=== PATIENT | female | born 1930 | race Caucasian/White ===

== ENCOUNTER 2016-09-27 13:27 | Inpatient (IN) | payer BC, OTHER ==
[~2016-09-27] VITALS: Ht 152.4 cm; Wt 49.4 kg
[~2016-09-27 13:27] MED LIST: CALC-388 PO; CRFUDL PO; ESOM1CAP34 PO; GABA-113 PO; LDDP5 TD; LEVO50TA PO; NCY50 PO; QUIN40TA18 PO; SPIR25TA PO; TAPE50TA5 PO
[2016-09-27] MEDS ORDERED: SODIUM CHLORIDE 0.9% 500ML 500 ML IV STA ×2 (14:13→16:21)
[2016-09-27] MEDS ORDERED: SODIUM CHLORIDE 0.9% 1000ML 1,000 ML IV STA (14:13)
[2016-09-27 14:42] LABS: BASO % 0.3 %; BASO ABS # 0.04 K/uL (0-0.2); COMPLETE YES; EOS % 0.9 %; HEMATOCRIT 34.3 % (37-47); IG% 0.6 %; LYMPH % 10.6 %; LYMPH ABS # 1.37 K/uL (1.2-3.4); MEAN CELL VOLUME 94.5 fL (80-100); MEAN CORPUSCULAR HEMOGLOBIN 31.4 pg (25-34); MEAN CORPUSCULAR HGB CONC 33.2 g/dl (32-36); MEAN PLATELET VOLUME 8.9 fL (7.4-10.4); NEUT % 77.6 %; PLATELET COUNT 440 K/uL (130-400); RED BLOOD COUNT 3.63 M/uL (4.2-5.4); WHITE BLOOD COUNT 12.97 K/uL (4.8-10.8)
[2016-09-27 14:52] LABS: PARTIAL THROMBOPLASTIN RATIO 1.2; PROTHROMBIN TIME (PATIENT) 10.5 SECONDS (9.0-12.0)
--- NOTE | 2016-09-27 14:56 | DIAGNOSTIC IMAGING REPORT ---
SINGLE VIEW CHEST CLINICAL HISTORY: Fall. Generalized weakness. FINDINGS: An AP, portable, upright chest radiograph is compared to study dated 01/31/2016. The examination is degraded by portable technique and patient rotation. The heart appears mildly enlarged and there is atherosclerotic calcification of the thoracic aorta. There is chronic elevation of the right hemidiaphragm and bibasilar atelectasis. A hiatal hernia is noted. No airspace consolidation is seen typical for pneumonia and there is no large pleural effusion. No pneumothorax is seen. The skeletal structures are osteopenic. The bony thorax is grossly intact. Degenerative change and scoliosis are noted in the thoracic spine. IMPRESSION: 1. Cardiac enlargement with no acute cardiopulmonary abnormality. 2. Hiatal hernia. Electronically signed by: Benjamín Charles M.D. 09/27/2016 2:55 PM Dictated Date/Time: 09/27/2016 2:53 PM
[2016-09-27] MEDS ORDERED: ESOM1CAP34 PO (14:57)
[2016-09-27] MEDS ORDERED: LEVO75TA5 PO (15:00)
[2016-09-27 15:01] LABS: ALT/SGPT 35 U/L (12-78); AST/SGOT 58 U/L (15-37); BLOOD UREA NITROGEN 59 mg/dl (7-18); CALCIUM 9.5 mg/dl (8.5-10.1); CARBON DIOXIDE 27 mmol/L (21-32); CHLORIDE 99 mmol/L (98-107); GLUCOSE 109 mg/dl (70-99); MAGNESIUM 2.6 mg/dl (1.8-2.4); POTASSIUM 4.9 mmol/L (3.5-5.1); SODIUM 132 mmol/L (136-145)
[2016-09-27] MEDS ORDERED: ACET-1256 PO (15:03)
--- NOTE | 2016-09-27 15:13 | DIAGNOSTIC IMAGING REPORT ---
CT SCAN OF THE BRAIN WITHOUT IV CONTRAST CLINICAL HISTORY: Generalized weakness. Falls. COMPARISON STUDY: No priors. TECHNIQUE: Unenhanced axial CT scan of the brain is performed from the vertex to the skull base. FINDINGS: Brain parenchyma: There are age-related involutional changes noting moderate confluent subcortical and periventricular microangiopathic change. 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 There is no hemorrhage, mass effect, or evidence of acute territorial ischemia by CT criteria. Winkler-white matter is preserved. No extra-axial fluid collection is seen. Ventricles, sulci, cisterns: Prominent secondary to involutional change. Intracranial vasculature: There is atherosclerotic calcification of the cavernous carotid and vertebral arteries. Calvarium: The skeletal structures are osteopenic. No depressed calvarial fracture is seen. Sinuses and mastoids: There is moderate mucosal thickening within the anterior ethmoid sinuses. Mild mucosal thickening is seen in the frontal sinuses. Air-fluid levels noted in the left maxillary antrum. The mastoid air cells are well pneumatized. Orbits: The bony orbits are grossly intact. IMPRESSION: 1. Senescent changes as above with no hemorrhage, mass effect, or evidence of acute territorial ischemia by CT criteria. 2. Paranasal sinus disease as above. Electronically signed by: Benjamín Charles M.D. 09/27/2016 3:11 PM Dictated Date/Time: 09/27/2016 3:09 PM
[2016-09-27 15:15] LABS: ALKALINE PHOSPHATASE 67 U/L (45-117); CKMB/CK RATIO 1.5 (0-3.0)
--- NOTE | 2016-09-27 15:23 | DIAGNOSTIC IMAGING REPORT ---
CERVICAL SPINE CT CT DOSE: 1041.54 mGy.cm HISTORY: Neck pain. fall TECHNIQUE: Multiaxial CT images of the cervical spine were performed and reformatted in the sagittal and coronal plane without the use of contrast. COMPARISON: None. FINDINGS: There are severe disc space narrowing, partial fusion, and endplate osteophytes at the C4-C7 levels. There is 2 mm of anterolisthesis of C3 and C4 and C7 on T1. This favors long-standing degenerative change or a Fusion of the facets at C2-C3. Mild to moderate central canal narrowing seen from C4 through C7. Mild disc space narrowing at C3-C4 and C7-T1. No prevertebral soft tissue swelling. No pneumothorax. Tiny lucency within the left C4 transverse process on image 242 demonstrates carotid edges and is therefore likely old. No acute fractures. IMPRESSION: No acute fractures within the cervical spine. Advanced degenerative changes as described above. Electronically signed by: Cedrick Prater M.D. 09/27/2016 3:21 PM Dictated Date/Time: 09/27/2016 3:13 PM
[2016-09-27] MEDS ORDERED: LEVAQUIN 750MG / 150ML D5W IV STA (16:21)
[2016-09-27 17:15] LABS: URINE APPEARANCE TURBID (CLEAR); URINE BILIRUBIN NEG (NEG); URINE COLOR YELLOW; URINE EPITHELIAL CELL AUTO >30 /lpf (0-5); URINE NITRITE POS (NEG); URINE SPECIFIC GRAVITY 1.014 (1.000-1.030); UROBILINOGEN NEG (NEG)
[2016-09-27 17:22] LABS: MANUAL MICROSCOPIC REQUIRED? NO; REVIEW REQ? YES
[2016-09-27] MEDS ORDERED: TAPENTADOL HCL 50 MG TAB PO PRN (17:30)
[2016-09-27] MEDS ORDERED: ACETAMINOPHEN 500 MG TAB PO PRN (17:30)
[2016-09-27] MEDS ORDERED: MAGNESIUM HYDROXIDE SUSP 30 ML UDC PO PRN (17:30)
[2016-09-27] MEDS ORDERED: ONDANSETRON INJ 2 MG/ML 2 ML VIAL IV PRN (17:30)
[2016-09-27] MEDS ORDERED: ACETAMINOPHEN 325 MG TAB PO PRN (17:30)
--- NOTE | 2016-09-27 17:35 | History and Physical ---
History & Physical Date & Time of Service: Sep 27, 2016 at 17:34 Chief Complaint: 4 Falls In Past 3 Days - Refered Primary Care Physician: Inocencia Monterroso DO History of Present Illness Source: patient 86 y/o F who was transferred here from [facility] for recent falls. Pt states she fell this AM "and 3-5 other times". She cannot outline these falls to me. She cannot tell me if she has been eating or drinking lately. Pt denies fever, SOB, chest pain, abd pain, n/v/c/d, LE pain or swelling, urinary issues. Pt states she is tired. ROS as noted above, otherwise neg. ED physician reports that there was a niece with pt prior who states that there was intermittent confusion over the last few days with some R LE weakness. She thought the pt was pale yesterday and had some LE swelling despite decreased fluid intake. She reports that a urine was done at and that it was neg. There are no reports in our sx of a UA. Past Medical/Surgical History Medical Problems: (1) Anemia Status: Chronic (2) GI bleed Status: Resolved (3) Hypertension Status: Chronic (4) Hypothyroidism Status: Chronic (5) Osteoporosis Status: Chronic (6) Spinal stenosis Status: Chronic Family History Family history was reviewed; no changes noted. Social History Smoking Status: Never Smoker Alcohol Use: none Drug Use: none Marital Status: Occupational Status: retired Multi-Drug Resistant Organisms History of MDRO: No Allergies Coded Allergies: No Known Allergies (Unverified , 05/20/16) Home Medications Scheduled Calcium Carbonate-Vitamin D (Calcium + D3 600-200 mg-Unit), 1 TAB PO BID Esomeprazole Magnesium (Esomeprazole Magnesium), 40 MG PO DAILY Gabapentin (Neurontin), 300 MG PO TID Levothyroxine Sodium (Levothyroxine Sodium), 1 TAB PO DAILY Quinapril Hcl (Accupril), 40 MG PO DAILY Spironolactone (Aldactone), 25 MG PO DAILY Tapentadol Hcl (Nucynta), 50 MG PO BID Scheduled PRN Acetaminophen (Tylenol), 1,000 MG PO Q8H PRN for Fever Tapentadol HCl (Nucynta), 50 MG PO Q6 PRN for Pain Physical Exam Vital Signs Date Time Temp Pulse Resp B/P Pulse Ox O2 Delivery O2 Flow Rate FiO2 09/27/16 16:45 78 141/68 98 Room Air 09/27/16 16:31 83 16 115/102 90 Room Air 09/27/16 15:16 82 14 111/64 96 Nasal Cannula 2.0 09/27/16 14:46 95 Nasal Cannula 2.0 09/27/16 14:44 60 14 140/78 94 Room Air 09/27/16 14:38 86 09/27/16 14:32 84 Room Air 09/27/16 13:36 37.1 93 20 72/44 93 Room Air General Appearance: no apparent distress, + thin Head: normocephalic, atraumatic Respiratory/Chest: lungs clear, normal breath sounds Cardiovascular: regular rate, rhythm, no edema Abdomen/GI: non tender, soft Extremities/Musculoskelatal: no calf tenderness, no pedal edema 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 as tested, alert, oriented x 3 Skin: normal color, warm/dry Diagnostics Laboratory Results Results Past 24 Hours Test 09/27/16 14:26 09/27/16 14:35 09/27/16 16:45 Range/Units White Blood Count 12.97 4.8-10.8 K/uL Red Blood Count 3.63 4.2-5.4 M/uL Hemoglobin 11.4 12.0-16.0 g/dL Hematocrit 34.3 37-47 % Mean Corpuscular Volume 94.5 80-100 fL Mean Corpuscular Hemoglobin 31.4 25-34 pg Mean Corpuscular Hemoglobin Concent 33.2 32-36 g/dl Platelet Count 440 130-400 K/uL Mean Platelet Volume 8.9 7.4-10.4 fL Neutrophils (%) (Auto) 77.6 % Lymphocytes (%) (Auto) 10.6 % Monocytes (%) (Auto) 10.0 % Eosinophils (%) (Auto) 0.9 % Basophils (%) (Auto) 0.3 % Neutrophils # (Auto) 10.06 1.4-6.5 K/uL Lymphocytes # (Auto) 1.37 1.2-3.4 K/uL Monocytes # (Auto) 1.30 0.11-0.59 K/uL Eosinophils # (Auto) 0.12 0-0.5 K/uL Basophils # (Auto) 0.04 0-0.2 K/uL RDW Standard Deviation 44.9 36.4-46.3 fL RDW Coefficient of Variation 13.0 11.5-14.5 % Immature Granulocyte % (Auto) 0.6 % Immature Granulocyte # (Auto) 0.08 0.00-0.02 K/uL Prothrombin Time 10.5 9.0-12.0 SECONDS Prothromb Time International Ratio 1.0 0.9-1.1 Activated Partial Thromboplast Time 30.0 21.0-31.0 SECONDS Partial Thromboplastin Ratio 1.2 Sodium Level 132 136-145 mmol/L Potassium Level 4.9 3.5-5.1 mmol/L Chloride Level 99 98-107 mmol/L Carbon Dioxide Level 27 21-32 mmol/L Anion Gap 6.0 3-11 mmol/L Blood Urea Nitrogen 59 7-18 mg/dl Creatinine 3.70 0.60-1.20 mg/dl Est Creatinine Clear Calc Drug Dose 8.4 ml/min Estimated GFR () 12.1 Estimated GFR (Non- 10.4 BUN/Creatinine Ratio 16.0 10-20 Random Glucose 109 70-99 mg/dl Calcium Level 9.5 8.5-10.1 mg/dl Magnesium Level 2.6 1.8-2.4 mg/dl Total Bilirubin 0.5 0.2-1 mg/dl Direct Bilirubin 0.2 0-0.2 mg/dl Aspartate Amino Transf (AST/SGOT) 58 15-37 U/L Alanine Aminotransferase (ALT/SGPT) 35 12-78 U/L Alkaline Phosphatase 67 45-117 U/L Total Creatine Kinase 1040 26-192 U/L Creatine Kinase MB 15.4 0.5-3.6 ng/ml Creatine Kinase MB Ratio 1.5 0-3.0 Troponin I < 0.015 0-0.045 ng/ml Total Protein 8.3 6.4-8.2 gm/dl Albumin 3.4 3.4-5.0 gm/dl Lipase 106 73-393 U/L Thyroid Stimulating Hormone (TSH) 2.910 0.300-4.500 uIu/ml Bedside Lactic Acid Venous 1.10 0.90-1.70 mmol/L Urine Color YELLOW Urine Appearance TURBID CLEAR Urine pH 5.0 4.5-7.5 Urine Specific [place] 1.014 1.000-1.030 Urine Protein 1+ NEG Urine Glucose (UA) NEG NEG Urine Ketones NEG NEG Urine Occult Blood 3+ NEG Urine Nitrite POS NEG Urine Bilirubin NEG NEG Urine Urobilinogen NEG NEG Urine Leukocyte Esterase LARGE NEG Microbiology Results 09/27/16 Blood Culture, Received Pending 09/27/16 Blood Culture, Received Pending 09/27/16 Urine Culture, Received Pending Diagnostic Radiology CXR neg for acute issues, noted for hiatal hernia CT head with paranasal sinusitis CT c-spine neg for acute issues Impression Assessment and Plan 86 y/o F who was admitted on 09/27 for rhabdo and AMS AMS: metabolic encephalopathy, 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 She does have a living will that states that she is DNR/DNI in the setting of permanent brain damage or need for mechanical support May need to discuss code status further with niece Reg diet per [facility] records Heparin for DVT proph CM: Pt lives at [facility] PT/OT Level of Care Telemetry Advanced Directives Existing Advance Directive: Yes Existing Living Will: Yes Existing Power of Surgical Clinical Reviewer: Yes Resuscitation Status FULL RESUSCITATION VTE Prophylaxis VTE Risk Assessment Done? Y/N: Yes Risk Level: Low
--- NOTE | 2016-09-27 17:45 | EMERGENCY ROOM VISIT NOTE ---
History Report prepared by Mark: Rocky Hyman Under the Supervision of: Dr. Ashish Oquendo M.D. First contact with patient: 14:12 Chief Complaint: HYPOTENSION Stated Complaint: 4 FALLS IN PAST 3 DAYS - REFERED History of Present Illness The patient is an 86 year old female who presents to the Emergency Room from [facility] with complaints of worsening fatigue beginning three days prior to arrival. As per niece, the patient has fallen 4 times in the past three days. She notes that when the nurses find the patient on the floor that she does not know what happened. The niece states the patient fell on the bathroom floor this morning. She also states the patient has experienced intermittent confusion over the past few days, as well. The niece notes the patient has sclerosis in the lower back with two pinched nerves that she takes medication for. The patient states her right leg has appeared weaker over the past few days. The niece notes the patient has not been walking as much as usual. She states she noticed the patient appeared pale yesterday and saw swelling in the patient's feet. The niece notes the patient has been hunched over with her face in her lap, where the patient will fall asleep in the position. She states it has been difficult for the patient to sit up straight, and she has decreased fluid intake. The niece denies the patient having a history of stroke. Pt denies LOC, headache, fevers, chills, diaphoresis, visual changes, neck pain, chest pain, breathing difficulties, nausea, vomiting, abdominal pain, back pain , melena, hematochezia, urinary symptoms, numbness, lymphadenopathy, rash, or other complaints. Source of History: patient, family (niece) Onset: three days [employer] Position: other (global) Quality: other (fatigue) Timing: worsening Associated Symptoms: + fatigue, + weakness (right leg) Note: Associated symptoms: frequent falls, intermittent confusion, decreased fluid intake Review of Systems See HPI for pertinent positives and negatives. A total of ten systems were reviewed and were otherwise negative. Past Medical & Surgical Medical Problems: (1) Anemia (2) GI bleed (3) Hypertension (4) Hypothyroidism (5) Lumbar degenerative disc disease (6) Osteoporosis (7) Rhabdomyolysis (8) Spinal stenosis Family History Heart disease Hypertension Social History Smoking Status: Never Smoker Drug Use: none Marital Status: Housing Status: other ([facility]) Occupation Status: retired Current/Historical Medications Scheduled Calcium Carbonate-Vitamin D (Calcium + D3 600-200 mg-Unit), 1 TAB PO BID Esomeprazole Magnesium (Esomeprazole Magnesium), 40 MG PO DAILY Gabapentin (Neurontin), 300 MG PO TID Levothyroxine Sodium (Levothyroxine Sodium), 1 TAB PO DAILY Quinapril Hcl (Accupril), 40 MG PO DAILY Spironolactone (Aldactone), 25 MG PO DAILY Tapentadol Hcl (Nucynta), 50 MG PO BID Scheduled PRN Acetaminophen (Tylenol), 1,000 MG PO Q8H PRN for Fever Tapentadol HCl (Nucynta), 50 MG PO Q6 PRN for Pain Allergies Coded Allergies: No Known Allergies (Unverified , 05/20/16) Physical Exam Vital Signs Date Time Temp Pulse Resp B/P Pulse Ox O2 Delivery O2 Flow Rate FiO2 09/27/16 16:45 78 141/68 98 Room Air 09/27/16 16:31 83 16 115/102 90 Room Air 09/27/16 15:16 82 14 111/64 96 Nasal Cannula 2.0 09/27/16 14:46 95 Nasal Cannula 2.0 09/27/16 14:44 60 14 140/78 94 Room Air 09/27/16 14:38 86 09/27/16 14:32 84 Room Air 09/27/16 13:36 37.1 93 20 72/44 93 Room Air Physical Exam GENERAL: Awake, alert, well-appearing, in no distress HENT: Normocephalic, atraumatic. Oropharynx unremarkable. EYES: Pale conjunctiva. Sclera non-icteric. PERRL. EOMI. NECK: Supple. No nuchal rigidity. FROM. No JVD. RESPIRATORY: Clear to auscultation. CARDIAC: Regular rate, normal rhythm. Extremities warm and well perfused. Pulses equal. ABDOMEN: Soft, non-distended. No tenderness to palpation. No rebound or guarding. No masses. RECTAL: Deferred. MUSCULOSKELETAL: Chest examination reveals no tenderness. The back is symmetrical on inspection without obvious abnormality. There is no CVA tenderness to palpation. No joint edema. LOWER EXTREMITIES: Trace lower extremity edema. Calves are equal size bilaterally and non-tender. No discoloration. NEURO: Mildly consumed sensorium. No sensory or motor deficits noted. SKIN: No rash or jaundice noted. Medical Decision & Procedures ER Provider Diagnostic Interpretation: X ray results as stated below per my interpretation and radiologist interpretation. Other radiology results as stated below per my review and radiologist interpretation SINGLE VIEW CHEST CLINICAL HISTORY: Fall. Generalized weakness. FINDINGS: An AP, portable, upright chest radiograph is compared to study dated 01/31/2016. The examination is degraded by portable technique and patient rotation. The heart appears mildly enlarged and there is atherosclerotic calcification of the thoracic aorta. There is chronic elevation of the right hemidiaphragm and bibasilar atelectasis. A hiatal hernia is noted. No airspace consolidation is seen typical for pneumonia and there is no large pleural effusion. No pneumothorax is seen. The skeletal structures are osteopenic. The bony thorax is grossly intact. Degenerative change and scoliosis are noted in the thoracic spine. IMPRESSION: 1. Cardiac enlargement with no acute cardiopulmonary abnormality. 2. Hiatal hernia. Electronically signed by: Benjamín Charles M.D. 09/27/2016 2:[address] SCAN OF THE BRAIN WITHOUT IV CONTRAST CLINICAL HISTORY: Generalized weakness. Falls. COMPARISON STUDY: No priors. TECHNIQUE: Unenhanced axial CT scan of the brain is performed from the vertex to the skull base. FINDINGS: Brain parenchyma: There are age-related involutional changes noting moderate confluent subcortical and periventricular microangiopathic change. 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 There is no hemorrhage, mass effect, or evidence of acute territorial ischemia by CT criteria. Winkler-white matter is preserved. No extra-axial fluid collection is seen. Ventricles, sulci, cisterns: Prominent secondary to involutional change. Intracranial vasculature: There is atherosclerotic calcification of the cavernous carotid and vertebral arteries. Calvarium: The skeletal structures are osteopenic. No depressed calvarial fracture is seen. Sinuses and mastoids: There is moderate mucosal thickening within the anterior ethmoid sinuses. Mild mucosal thickening is seen in the frontal sinuses. Air-fluid levels noted in the left maxillary antrum. The mastoid air cells are well pneumatized. Orbits: The bony orbits are grossly intact. IMPRESSION: 1. Senescent changes as above with no hemorrhage, mass effect, or evidence of acute territorial ischemia by CT criteria. 2. Paranasal sinus disease as above. Electronically signed by: Benjamín Charles M.D. 09/27/2016 3:[address] DOSE: 1041.54 mGy.cm HISTORY: Neck pain. fall TECHNIQUE: Multiaxial CT images of the cervical spine were performed and reformatted in the sagittal and coronal plane without the use of contrast. COMPARISON: None. FINDINGS: There are severe disc space narrowing, partial fusion, and endplate osteophytes at the C4-C7 levels. There is 2 mm of anterolisthesis of C3 and C4 and C7 on T1. This favors long-standing degenerative change or a Fusion of the facets at C2-C3. Mild to moderate central canal narrowing seen from C4 through C7. Mild disc space narrowing at C3-C4 and C7-T1. No prevertebral soft tissue swelling. No pneumothorax. Tiny lucency within the left C4 transverse process on image 242 demonstrates carotid edges and is therefore likely old. No acute fractures. IMPRESSION: No acute fractures within the cervical spine. Advanced degenerative changes as described above. Electronically signed by: Cedrick Prater M.D. 09/27/2016 3:21 PM Laboratory Results 09/27/16 14:26 Red Blood Count 3.63, Mean Corpuscular Volume 94.5, Mean Corpuscular Hemoglobin 31.4, Mean Corpuscular Hemoglobin Concent 33.2, Mean Platelet Volume 8.9, Neutrophils (%) (Auto) 77.6, Lymphocytes (%) (Auto) 10.6, Monocytes (%) (Auto) 10.0, Eosinophils (%) (Auto) 0.9, Basophils (%) (Auto) 0.3, Neutrophils # (Auto ) 10.06, Lymphocytes # (Auto) 1.37, Monocytes # (Auto) 1.30, Eosinophils # (Auto ) 0.12, Basophils # (Auto) 0.04 09/27/16 14:26 Test 09/27/16 14:26 09/27/16 14:35 09/27/16 16:45 White Blood Count 12.97 K/uL (4.8-10.8) Red Blood Count 3.63 M/uL (4.2-5.4) Hemoglobin 11.4 g/dL (12.0-16.0) Hematocrit 34.3 % (37-47) Mean Corpuscular Volume 94.5 fL (80-100) Mean Corpuscular Hemoglobin 31.4 pg (25-34) Mean Corpuscular Hemoglobin Concent 33.2 g/dl (32-36) Platelet Count 440 K/uL (130-400) Mean Platelet Volume 8.9 fL (7.4-10.4) Neutrophils (%) (Auto) 77.6 % Lymphocytes (%) (Auto) 10.6 % Monocytes (%) (Auto) 10.0 % Eosinophils (%) (Auto) 0.9 % Basophils (%) (Auto) 0.3 % Neutrophils # (Auto) 10.06 K/uL (1.4-6.5) Lymphocytes # (Auto) 1.37 K/uL (1.2-3.4) Monocytes # (Auto) 1.30 K/uL (0.11-0.59) Eosinophils # (Auto) 0.12 K/uL (0-0.5) Basophils # (Auto) 0.04 K/uL (0-0.2) RDW Standard Deviation 44.9 fL (36.4-46.3) RDW Coefficient of Variation 13.0 % (11.5-14.5) Immature Granulocyte % (Auto) 0.6 % Immature Granulocyte # (Auto) 0.08 K/uL (0.00-0.02) Prothrombin Time 10.5 SECONDS (9.0-12.0) Prothromb Time International Ratio 1.0 (0.9-1.1) Activated Partial Thromboplast Time 30.0 SECONDS (21.0-31.0) Partial Thromboplastin Ratio 1.2 Anion Gap 6.0 mmol/L (3-11) Est Creatinine Clear Calc Drug Dose 8.4 ml/min Estimated GFR () 12.1 Estimated GFR (Non- 10.4 BUN/Creatinine Ratio 16.0 (10-20) Calcium Level 9.5 mg/dl (8.5-10.1) Magnesium Level 2.6 mg/dl (1.8-2.4) Total Bilirubin 0.5 mg/dl (0.2-1) Direct Bilirubin 0.2 mg/dl (0-0.2) Aspartate Amino Transf (AST/SGOT) 58 U/L (15-37) Alanine Aminotransferase (ALT/SGPT) 35 U/L (12-78) Alkaline Phosphatase 67 U/L (45-117) Total Creatine Kinase 1040 U/L (26-192) Creatine Kinase MB 15.4 ng/ml (0.5-3.6) Creatine Kinase MB Ratio 1.5 (0-3.0) Troponin I < 0.015 ng/ml (0-0.045) Total Protein 8.3 gm/dl (6.4-8.2) Albumin 3.4 gm/dl (3.4-5.0) Lipase 106 U/L (73-393) Thyroid Stimulating Hormone (TSH) 2.910 uIu/ml (0.300-4.500) Bedside Lactic Acid Venous 1.10 mmol/L (0.90-1.70) Urine Color YELLOW Urine Appearance TURBID (CLEAR) Urine pH 5.0 (4.5-7.5) Urine Specific [place] 1.014 (1.000-1.030) Urine Protein 1+ (NEG) Urine Glucose (UA) NEG (NEG) Urine Ketones NEG (NEG) Urine Occult Blood 3+ (NEG) Urine Nitrite POS (NEG) Urine Bilirubin NEG (NEG) Urine Urobilinogen NEG (NEG) Urine Leukocyte Esterase LARGE (NEG) Urine WBC (Auto) >30 /hpf (0-5) Urine RBC (Auto) 5-10 /hpf (0-4) Urine Hyaline Casts (Auto) 5-10 /lpf (0-5) Urine Epithelial Cells (Auto) >30 /lpf (0-5) Urine Bacteria (Auto) 4+ (NEG) Urine Pathogenic Casts /lpf (0) Laboratory results reviewed by me Medications Administered Medications (Trade) Dose Ordered Sig/Declan Route Start Time Stop Time Status Last Admin Dose Admin Sodium Chloride 1,000 ml @ 125 mls/hr Q8H STAT IV 09/27/16 14:13 09/27/16 22:12 09/27/16 14:13 125 MLS/HR Sodium Chloride (Nss 500ml) 500 ml @ 999 mls/hr Q31M STAT IV 09/27/16 14:13 09/27/16 14:43 DC 09/27/16 14:13 999 MLS/HR Levofloxacin 750 mg 750 mg NOW STAT IV 09/27/16 16:21 09/27/16 16:24 DC 09/27/16 17:03 750 MG Sodium Chloride (Nss 500ml) 500 ml @ 999 mls/hr Q31M STAT IV 09/27/16 16:21 09/27/16 16:51 DC 09/27/16 16:21 999 MLS/HR ECG Indication: other (fall) Rate (beats per minute): 92 Rhythm: sinus rhythm Findings: 1st degree AV block, no acute ischemic change, no ectopy ED Course 1412: The patient was evaluated in room C3. A complete history and physical exam was performed. 1413: Ordered Sodium Chloride 500 ml @ 999 mls/hr IV, Sodium Chloride 1,000 ml @ 125 mls/hr IV. 1621: Ordered Sodium Chloride 500 ml @ 999 mls/hr IV, Levofloxacin 750 mg IV. 1638: Reevaluated and updated the patient at this time. She is in agreement with the treatment plan. 1646: I spoke to MONICA Jimenez (Internal Medicine) about the patient's case , and she will follow the patient for further evaluation. Medical Decision Triage Nursing notes reviewed. The patient's presentation and history were concerning for confusion and falls. Etiologies such as metabolic, infection, hypo/hyperglycemia, electrolyte abnormalities, cardiac sources, intracerebral event, toxicologic, neurologic, trauma, as well as others were entertained. The patient was evaluated. An IV was established. Blood cultures were obtained. The patient was given IV saline hydration. Her CBC showed a mild leukocytosis. She had a mild anemia as well. Chem panel was definitely concerning for acute renal failure with a creatinine of 3.7. Last measurements in the system are normal. The patient has elevated total CK of 1040 concerning for mild rhabdomyolysis. The patient has a normal lactate. Chest x-ray negative. CT imaging of the head and neck were unremarkable except for acute sinusitis. The patient does not have a headache the patient was given IV Levaquin. Urinalysis was pending. Nursing was notified to get the cath urine for the antibiotics. Cath urine was obtained and the patient did see the IV antibiotics. Consultation was made with internal medicine. I discussed the case with Dr. Vargas. She asked that I hold on imaging until she sees the patient regarding the renal failure.The patient's urinalysis returned after admission concerning for UTI. The chart was completed utilizing [employer] voice recognition software. Grammatical errors, random word insertions, pronoun errors, and incomplete sentences are an occasional consequence of this system due to software limitations, ambient noise, and hardware issues. Any formal questions or concerns about the content, text, or information contained within the body of this dictation should be directly addressed to the physician for clarification. Consults Time Called: 1628 Consulting Physician: MONICA Jimenez (Internal Medicine) Returned Call: 1646 I spoke to MONICA Jimenez (Internal Medicine) about the patient's case, and she will follow the patient for further evaluation. Impression Primary Impression: Acute renal failure Additional Impressions: Rhabdomyolysis Degenerative disc disease Sinusitis UTI (urinary tract infection) Scribe Attestation The scribe's documentation has been prepared under my direction and personally reviewed by me in its entirety. I confirm that the note above accurately reflects all work, treatment, procedures, and medical decision making performed by me. Departure Information Dispostion Being Evaluated By Hospitalist (MONICA Jimenez (Internal Medicine)) Referrals Inocencia Monterroso DO (PCP) Problem Qualifiers Primary Impression: Acute renal failure Acute renal failure type: unspecified Qualified Codes: N17.9 - Acute kidney failure, unspecified Additional Impressions: Rhabdomyolysis Rhabdomyolysis type: traumatic Encounter type: initial encounter Qualified Codes: T79.6XXA - Traumatic ischemia of muscle, initial encounter Degenerative disc disease Spinal region: unspecified cervical region Qualified Codes: M50.30 - Other cervical disc degeneration, unspecified cervical region Sinusitis Sinusitis location: maxillary Chronicity: acute Recurrence: non-recurrent Qualified Codes: J01.00 - Acute maxillary sinusitis, unspecified UTI (urinary tract infection) Urinary tract infection type: acute cystitis Hematuria presence: without hematuria Qualified Codes: N30.00 - Acute cystitis without hematuria
[2016-09-27] MEDS: SODIUM CHLORIDE 0.9% 1000ML 1,000 ML IV SCH (19:42)
[2016-09-27] MEDS ORDERED: LEVOFLOXACIN CONSULT ACTIVE PRN (20:00)
[2016-09-27 20:15] VITALS: BP 173/82; PULSE 81; TEMP 36.8; O2SAT 96
[2016-09-27] MEDS: HEPARIN SOD 5000 UNIT/0.5 ML CARP SQ SCH (21:00)
[2016-09-27 21:18] VITALS: BP 147/68; PULSE 82
[2016-09-27] MEDS: GABAPENTIN 300 MG CAP PO SCH (21:24)
[2016-09-27] MEDS: TAPENTADOL HCL 50 MG TAB PO SCH (21:25)
[2016-09-27] MEDS ORDERED: NURSING VERBAL MED ORDER ONE (23:15)
[2016-09-27 23:28] VITALS: BP 133/68; PULSE 76; TEMP 36.8; O2SAT 98; Ht 152.4 cm; Wt 49.4 kg
[2016-09-27 23:32] VITALS: BP 111/59; PULSE 85; TEMP 36.8; O2SAT 95
[2016-09-28] VITALS (10 sets, daily range): BP systolic 147–201; BP diastolic 62–100; PULSE 78–98; TEMP 36.4–36.8; O2SAT 92–94
[2016-09-28] MEDS: SODIUM CHLORIDE 0.9% 1000ML 1,000 ML IV SCH ×2 (06:28→19:18)
[2016-09-28] MEDS: LEVOTHYROXINE 75 MCG TAB PO SCH (06:28)
[2016-09-28 07:55] LABS: HEMATOCRIT 31.2 % (37-47); MEAN CORPUSCULAR HEMOGLOBIN 32.2 pg (25-34); MEAN CORPUSCULAR HGB CONC 34.3 g/dl (32-36); MEAN PLATELET VOLUME 8.8 fL (7.4-10.4); PLATELET COUNT 364 K/uL (130-400); RED BLOOD COUNT 3.32 M/uL (4.2-5.4); WHITE BLOOD COUNT 9.35 K/uL (4.8-10.8)
[2016-09-28] MEDS ORDERED: PNEUMOCOCCAL ADMINISTRATION CHARGE ONE (08:00)
[2016-09-28] MEDS ORDERED: PNEUMOCOCCAL POLYSACCHARIDES 25 MCG/0.5 ML VIAL/SYR IM. ONE (08:00)
[2016-09-28 08:39] LABS: BUN/CREATININE RATIO 22.4 (10-20); CREATININE 1.9 mg/dl (0.60-1.20); POTASSIUM 4.4 mmol/L (3.5-5.1)
[2016-09-28 08:57] LABS: CALCIUM 9.1 mg/dl (8.5-10.1)
[2016-09-28] MEDS ORDERED: SPIRONOLACTONE 25 MG TAB PO SCH (09:00)
[2016-09-28] MEDS ORDERED: NON-FORMULARY MEDICATION (Quinapril Hcl (Accupril) 40 MG) PO SCH (09:00)
[2016-09-28] MEDS: TAPENTADOL HCL 50 MG TAB PO SCH ×2 (09:32→19:22)
[2016-09-28] MEDS: GABAPENTIN 300 MG CAP PO SCH ×3 (09:32→19:22)
[2016-09-28] MEDS: PANTOprazole SOD 40 MG TAB PO SCH (09:32)
[2016-09-28] MEDS: CALCIUM 600MG + VIT D 400 IU TAB PO SCH ×2 (09:33→18:41)
[2016-09-28] MEDS: HEPARIN SOD 5000 UNIT/0.5 ML CARP SQ SCH ×2 (09:35→21:10)
[2016-09-28] MEDS ORDERED: HALOPERIDOL LACTATE 5 MG/ML 1 ML VIAL IM PRN (18:00)
--- NOTE | 2016-09-28 21:59 | Hospitalist Progress Note ---
Hospitalist Progress Note Date of Service Sep 28, 2016. Subjective Pt evaluation today including: conversation w/ patient, conversation w/ family (spoke with niece on the phone) Patient very confused, confabulates. Says she feels fine. Her niece tells me that she has had a diagnosis of dementia for at least the last year, however she has been more confused in the last several weeks. She was admitted with multiple falls, has some leg pain, was found to be in a mild rhabdomyolysis, along with a UTI and sinusitis. She also had acute kidney injury. All Other Systems: Reviewed and Negative Objective Vital Signs Date Time Temp Pulse Resp B/P Pulse Ox O2 Delivery O2 Flow Rate FiO2 09/28/16 20:50 190/100 09/28/16 20:40 201/93 09/28/16 20:06 Room Air 09/28/16 20:00 197/84 09/28/16 19:37 36.6 84 20 197/86 94 Room Air 09/28/16 16:00 Room Air 09/28/16 15:14 36.7 84 18 151/62 92 Room Air 09/28/16 12:00 Room Air 09/28/16 11:40 36.8 81 18 148/73 94 Room Air 09/28/16 08:00 94 Room Air 09/28/16 07:33 36.4 78 18 165/77 94 Room Air 09/28/16 04:05 36.4 98 20 147/72 92 Room Air 09/28/16 04:00 Nasal Cannula 2.0 09/28/16 00:00 Nasal Cannula 2.0 09/27/16 23:32 36.8 85 20 111/59 95 2.0 09/27/16 23:28 36.8 76 18 133/68 98 Nasal Cannula 2.0 Physical Exam General Appearance: WD/WN, no apparent distress Eyes: normal inspection, sclerae normal ENT: hearing grossly normal Neck: trachea midline Respiratory/Chest: lungs clear, normal breath sounds, no respiratory distress, no accessory muscle use Cardiovascular: regular rate, rhythm, no edema, no gallop, no murmur Abdomen: normal bowel sounds, non tender, soft, no organomegaly Extremities: normal inspection, no pedal edema, no calf tenderness Neurologic/Psychiatric: alert, + disoriented Skin: normal color, warm/dry, no rash Laboratory Results Last 24 Hours Test 09/28/16 07:27 White Blood Count 9.35 K/uL Red Blood Count 3.32 M/uL Hemoglobin 10.7 g/dL Hematocrit 31.2 % Mean Corpuscular Volume 94.0 fL Mean Corpuscular Hemoglobin 32.2 pg Mean Corpuscular Hemoglobin Concent 34.3 g/dl RDW Standard Deviation 44.6 fL RDW Coefficient of Variation 12.9 % Platelet Count 364 K/uL Mean Platelet Volume 8.8 fL Sodium Level 139 mmol/L Potassium Level 4.4 mmol/L Chloride Level 106 mmol/L Carbon Dioxide Level 25 mmol/L Anion Gap 8.0 mmol/L Blood Urea Nitrogen 43 mg/dl Creatinine 1.90 mg/dl Est Creatinine Clear Calc Drug Dose 15.0 ml/min Estimated GFR () 27.0 Estimated GFR (Non- 23.3 BUN/Creatinine Ratio 22.4 Random Glucose 78 mg/dl Calcium Level 9.1 mg/dl Total Creatine Kinase 496 U/L Assessment and Plan 86 y/o F who was admitted on 09/27 for rhabdo and AMS Acute metabolic encephalopathy, likely related to UTI [employer], urine culture growing Escherichia coli, also with acute sinusitis on CT of the head. CT of the head otherwise negative. Leukocytosis is improved Continue Levaquin and follow-up urine culture sensitivities levaquin will cover also for her acute sinusitis Continue to follow blood cultures Rhabdo, acute kidney injury: in the setting of several recent falls in which nursing has found pt on the floor. Baseline creatinine less than 1, but was 3.7 on admission likely secondary to ATN from hypotension, prerenal azotemia CK mildly elevated at 1040 and now improved to 496 with IV fluids Cr improved after IV fluids and treatment of UTI and is now down to 1.9, renal US pending -Continue gentle IV fluids and continue holding spironolactone from home HTN: HypoTN on arrival, but now becoming hypertensive Hold spironolactone and quinapril for acute kidney injury Monitor on tele -Labetalol when necessary Hypothyroid: TSH WNL Other: Full code per pt. She does have a living will that states that she is DNR/DNI in the setting of permanent brain damage or need for mechanical support Reg diet per [facility] records Heparin for DVT proph CM: Pt lives at [facility] PT/OT evaluations-niece reports that she frequently declines this and chooses to sit in a wheelchair most of the day
[2016-09-28] MEDS ORDERED: LABETALOL HCL IV 5 MG/ML 20ML IV SCH (22:00)
[2016-09-29] VITALS (7 sets, daily range): BP systolic 110–190; BP diastolic 65–98; PULSE 70–110; TEMP 36.4–37.3; O2SAT 92–95
[2016-09-29] MEDS: LEVOTHYROXINE 75 MCG TAB PO SCH (06:05)
[2016-09-29] MEDS: SODIUM CHLORIDE 0.9% 1000ML 1,000 ML IV SCH (06:05)
[2016-09-29 07:16] LABS: BASO % 0.6 %; BASO ABS # 0.04 K/uL (0-0.2); COMPLETE YES; EOS % 7.6 %; HEMATOCRIT 29.7 % (37-47); IG% 0.6 %; LYMPH % 25.6 %; LYMPH ABS # 1.76 K/uL (1.2-3.4); MEAN CELL VOLUME 93.7 fL (80-100); MEAN CORPUSCULAR HEMOGLOBIN 30.9 pg (25-34); MEAN PLATELET VOLUME 8.8 fL (7.4-10.4); MONO % 10.6 %; PLATELET COUNT 377 K/uL (130-400); RED BLOOD COUNT 3.17 M/uL (4.2-5.4); WHITE BLOOD COUNT 6.88 K/uL (4.8-10.8)
[2016-09-29 07:56] LABS: BUN/CREATININE RATIO 26.5 (10-20); CALCIUM 8.7 mg/dl (8.5-10.1); CREATININE 1.2 mg/dl (0.60-1.20); MAGNESIUM 1.9 mg/dl (1.8-2.4); POTASSIUM 4.5 mmol/L (3.5-5.1)
[2016-09-29] MEDS: PANTOprazole SOD 40 MG TAB PO SCH (08:01)
[2016-09-29] MEDS: TAPENTADOL HCL 50 MG TAB PO SCH ×2 (08:01→20:11)
[2016-09-29] MEDS: GABAPENTIN 300 MG CAP PO SCH ×3 (08:01→20:11)
[2016-09-29] MEDS: CALCIUM 600MG + VIT D 400 IU TAB PO SCH ×2 (08:01→17:09)
[2016-09-29] MEDS: HEPARIN SOD 5000 UNIT/0.5 ML CARP SQ SCH ×2 (08:07→20:11)
--- NOTE | 2016-09-29 08:12 | DIAGNOSTIC IMAGING REPORT ---
RENAL ULTRASOUND CLINICAL HISTORY: Elevated creatinine. COMPARISON STUDY: CT of the abdomen and pelvis February 03, 2016. TECHNIQUE: Sonography of the kidneys and the urinary bladder was performed. FINDINGS: The right kidney measures 7.3 x 3.3 x 3.3 cm and the left measures 9 x 4.5 x 3.9 cm. There is no right hydronephrosis. There is mild left pelvicaliectasis. There is a 2.5 cm left renal cyst. Both ureteral jets were identified. IMPRESSION: Mild left pelvicaliectasis without doris hydronephrosis. Electronically signed by: Eusebio Acuña M.D. 09/29/2016 8:11 AM Dictated Date/Time: 09/29/2016 8:10 AM
[2016-09-29] MEDS ORDERED: LEVOFLOXACIN / D5W 500 MG in PREMIXED IN D5W 100 ML IV SCH (16:00)
[2016-09-29] MEDS ORDERED: LISINOPRIL 10 MG TAB PO ONE (16:48)
[2016-09-29] MEDS ORDERED: HydrALAZINE HCL 20 MG/ML VIAL IV. PRN (17:00)
[2016-09-29] MEDS ORDERED: HydrALAZINE HCL 20 MG/ML VIAL ONE (17:04)
--- NOTE | 2016-09-29 23:22 | Hospitalist Progress Note ---
Hospitalist Progress Note Date of Service Sep 29, 2016. Subjective Pt evaluation today including: conversation w/ patient, conversation w/ family Patient more oriented today, has no complaints. Normal sinus rhythm on telemetry. Blood pressures have been elevated. All Other Systems: Reviewed and Negative Objective Vital Signs Date Time Temp Pulse Resp B/P Pulse Ox O2 Delivery O2 Flow Rate FiO2 09/29/16 23:05 37.3 110 18 173/98 93 Room Air 09/29/16 20:00 Room Air 09/29/16 19:34 36.4 102 20 176/94 94 Room Air 09/29/16 16:45 77 190/82 09/29/16 16:00 Room Air 09/29/16 15:42 36.9 71 18 171/84 95 Room Air 09/29/16 12:00 Room Air 09/29/16 11:59 36.9 73 18 158/71 92 Room Air 09/29/16 08:00 Room Air 09/29/16 07:34 36.8 70 20 175/73 94 Room Air 09/29/16 04:41 36.9 73 16 110/65 93 Room Air 09/29/16 04:00 Room Air 09/29/16 00:00 Room Air 09/28/16 23:45 36.6 92 20 183/81 93 Room Air Physical Exam General Appearance: WD/WN, no apparent distress Eyes: normal inspection, sclerae normal ENT: hearing grossly normal Neck: trachea midline Respiratory/Chest: lungs clear, normal breath sounds, no respiratory distress, no accessory muscle use Cardiovascular: regular rate, rhythm, no edema, no gallop, no murmur Abdomen: normal bowel sounds, non tender, soft Extremities: non-tender, no pedal edema, no calf tenderness Neurologic/Psychiatric: alert, + disoriented (oriented to person and type of place being a hospital) Skin: normal color, warm/dry, no rash Laboratory Results Last 24 Hours Test 09/29/16 06:49 White Blood Count 6.88 K/uL Red Blood Count 3.17 M/uL Hemoglobin 9.8 g/dL Hematocrit 29.7 % Mean Corpuscular Volume 93.7 fL Mean Corpuscular Hemoglobin 30.9 pg Mean Corpuscular Hemoglobin Concent 33.0 g/dl Platelet Count 377 K/uL Mean Platelet Volume 8.8 fL Neutrophils (%) (Auto) 55.0 % Lymphocytes (%) (Auto) 25.6 % Monocytes (%) (Auto) 10.6 % Eosinophils (%) (Auto) 7.6 % Basophils (%) (Auto) 0.6 % Neutrophils # (Auto) 3.79 K/uL Lymphocytes # (Auto) 1.76 K/uL Monocytes # (Auto) 0.73 K/uL Eosinophils # (Auto) 0.52 K/uL Basophils # (Auto) 0.04 K/uL RDW Standard Deviation 43.9 fL RDW Coefficient of Variation 12.8 % Immature Granulocyte % (Auto) 0.6 % Immature Granulocyte # (Auto) 0.04 K/uL Sodium Level 143 mmol/L Potassium Level 4.5 mmol/L Chloride Level 110 mmol/L Carbon Dioxide Level 25 mmol/L Anion Gap 8.0 mmol/L Blood Urea Nitrogen 32 mg/dl Creatinine 1.20 mg/dl Est Creatinine Clear Calc Drug Dose 23.7 ml/min Estimated GFR () 47.1 Estimated GFR (Non- 40.6 BUN/Creatinine Ratio 26.5 Random Glucose 81 mg/dl Calcium Level 8.7 mg/dl Magnesium Level 1.9 mg/dl Assessment and Plan 86 y/o F who was admitted on 09/27 for rhabdo and AMS Acute metabolic encephalopathy likely related to UTI POA, sepsis-with tachycardia, hypotension, and leukocytosis on admission. Her urine culture is growing pansensitive Escherichia coli, also with acute sinusitis on CT of the head. CT of the head otherwise negative. Leukocytosis is improved Continue Levaquin for 7 day course and switched to by mouth for discharge tomorrow levaquin will cover also for her acute sinusitis Continue to follow blood cultures Rhabdo, acute kidney injury: in the setting of several recent falls in which nursing has found pt on the floor. Baseline creatinine less than 1, but was 3.7 on admission likely secondary to ATN from hypotension, prerenal azotemia. Creatinine improved to 1.2 after IV fluids. CK mildly elevated at 1040 and now improved to 496 with IV fluids Renal ultrasound showed mild left pelvicaliectasis without doris hydronephrosis -Discontinue IV fluids but continue holding spironolactone from home HTN: HypoTN on arrival, but now hypertensive Holding spironolactone and quinapril for acute kidney injury but now okay to restart ROSS inhibitor-we'll start lisinopril 10 mg daily as quinapril was not available -Hydralazine 10 mg IV when necessary for blood pressure greater than 180/100 Monitor on tele -Restart spironolactone likely tomorrow as long as renal function improved or stable Hypothyroid: TSH WNL -Continue levothyroxine Spinal stenosis-stable -Continue gabapentin and Nucynta GERD-stable -Continue Protonix Dementia-with delirium on admission and with some -Supportive care -IM Haldol when necessary Full code per pt. She does have a living will that states that she is DNR/DNI in the setting of permanent brain damage or need for mechanical support Reg diet per [facility] records Heparin for DVT proph CM: Pt lives at [facility] PT/OT evaluations-niece reports that she frequently declines PT and chooses to sit in a wheelchair most of the day, but given multiple falls and rhabdomyolysis , definitely need nursing home facility upon discharge -Hopeful for discharge to SNF on Friday
[2016-09-30] MEDS ORDERED: HydrALAZINE HCL 20 MG/ML VIAL IV. ONE (00:30)
[2016-09-30 04:35] VITALS: BP 160/77; PULSE 85; TEMP 36.7; O2SAT 92
[2016-09-30] MEDS: LEVOTHYROXINE 75 MCG TAB PO SCH (05:47)
[2016-09-30 06:13] LABS: BASO % 0.3 %; BASO ABS # 0.03 K/uL (0-0.2); COMPLETE YES; EOS % 5.6 %; IG% 0.5 %; LYMPH % 18.1 %; LYMPH ABS # 1.82 K/uL (1.2-3.4); MEAN CELL VOLUME 93.7 fL (80-100); MEAN CORPUSCULAR HEMOGLOBIN 31.4 pg (25-34); MEAN CORPUSCULAR HGB CONC 33.5 g/dl (32-36); MEAN PLATELET VOLUME 8.6 fL (7.4-10.4); MONO % 9.1 %; NEUT % 66.4 %; PLATELET COUNT 440 K/uL (130-400); RED BLOOD COUNT 3.63 M/uL (4.2-5.4); WHITE BLOOD COUNT 10.03 K/uL (4.8-10.8)
[2016-09-30 06:47] LABS: BUN/CREATININE RATIO 17.8 (10-20); CALCIUM 9.6 mg/dl (8.5-10.1); CREATININE 1.2 mg/dl (0.60-1.20); MAGNESIUM 1.8 mg/dl (1.8-2.4); POTASSIUM 4.3 mmol/L (3.5-5.1)
[2016-09-30 07:40] VITALS: BP 161/81; PULSE 91; TEMP 36.6; O2SAT 93
[2016-09-30] MEDS: CALCIUM 600MG + VIT D 400 IU TAB PO SCH (08:01)
[2016-09-30] MEDS: GABAPENTIN 300 MG CAP PO SCH ×2 (08:01→14:00)
[2016-09-30] MEDS: PANTOprazole SOD 40 MG TAB PO SCH (08:02)
[2016-09-30] MEDS: TAPENTADOL HCL 50 MG TAB PO SCH (08:04)
[2016-09-30] MEDS: HEPARIN SOD 5000 UNIT/0.5 ML CARP SQ SCH (08:06)
[2016-09-30] MEDS ORDERED: LISINOPRIL 10 MG TAB PO SCH (09:00)
[2016-09-30] MEDS ORDERED: LEVO-18 PO (11:13)
--- NOTE | 2016-09-30 11:16 | Discharge Instructions ---
Discharge Instructions Date of Service September 30, 2016. Admission Reason for Admission: Rhabdomyolysis Discharge Discharge Diagnosis / Problem: Urinary tract infection Discharge Goals Goal(s): Decrease discomfort, Improve function, Increase independence, Improve disease control, Diagnostic testing, Therapeutic intervention Activity Recommendations Activity Limitations: resume your previous activity Exercise/Sports Limitations: none . Instructions / Follow-Up Instructions / Follow-Up Patient to be discharged back to [facility] Will need to take antibiotic levaquin once a day for 5 more days Can restart back on spirolactone medication No other changes made to medications at this time Follow up with primary care provider Inocencia Monterroso in 1 week Current Hospital Diet Patient's current hospital diet: Regular Diet Discharge Diet Recommended Diet: Regular Diet Pending Studies Studies pending at discharge: no Medical Emergencies . Who to Call and When: Medical Emergencies: If at any time you feel your situation is an emergency, please call 911 immediately. . Non-Emergent Contact Non-Emergency issues call your: Primary Care Provider Call Non-Emergent contact if: you have a fever, your pain is worsening . . "Provider Documentation" section prepared by Dylan Ruiz. . VTE Core Measure Inpt VTE Proph given/why not?: Unfractionated heparin SQ
[2016-09-30 11:45] VITALS: BP 145/76; PULSE 94; TEMP 36.9; O2SAT 94
[2016-09-30 13:04] VITALS: BP 145/76; PULSE 94; TEMP 36.9; O2SAT 94
--- NOTE | 2016-09-30 13:08 | Discharge Summary ---
Discharge Summary Date of Service September 30, 2016. Discharge Summary Admission Date: Sep 27, 2016 at 17:25 Discharge Date: September 30, 2016 Discharge Disposition: [facility] facility ([facility]) Principal Diagnosis: UTI, sinusitis Medication Reconciliation New Medications: Levofloxacin (Levaquin) 750 Mg Tab 750 MG PO DAILY for 5 Days, #5 TAB Continued Medications: Acetaminophen (Tylenol) 500 Mg Tab 1000 MG PO Q8H PRN for Fever, TAB TAKE 1000MG EVERY 8 HOURS NEEDED FOR FEVER OF OVER 100.1 F. Calcium Carbonate-Vitamin D (Calcium + D3 600-200 mg-Unit) 1 Tab Tab 1 TAB PO BID Esomeprazole Magnesium (Esomeprazole Magnesium) 40 Mg Cap 40 MG PO DAILY Gabapentin (Neurontin) 300 Mg Cap 300 MG PO TID, CAP Levothyroxine Sodium (Levothyroxine Sodium) 75 Mcg Tab 1 TAB PO DAILY for 90 Days, #90 TAB 3 Refills Quinapril Hcl (Accupril) 40 Mg Tab 40 MG PO DAILY, TAB Spironolactone (Aldactone) 25 Mg Tab 25 MG PO DAILY, TAB Tapentadol HCl (Nucynta) 50 Mg Tab 50 MG PO Q6 PRN for Pain, #120 TAB 0 Refills Tapentadol Hcl (Nucynta) 50 Mg Tab 50 MG PO BID, TAB Discharge Exam Review of Systems: Constitutional: No chills, No fever Respiratory: No cough, No dyspnea on exertion, No shortness of breath, No sputum, No wheezing Cardiovascular: No chest pain, No orthopnea Abdomen: No constipation, No diarrhea, No nausea, No pain, No vomiting Musculoskeletal: No joint pain Genitourinary - Female: No dysuria, No urinary frequency, No urinary urgency Neurologic: No paralysis, No weakness Psychiatric: No depression symptoms, No insomnia Physical Exam: General Appearance: WD/WN, no apparent distress Neck: supple, no adenopathy Respiratory/Chest: lungs clear, normal breath sounds Cardiovascular: no gallop, no JVD Abdomen / GI: non tender, soft Neurologic/Psychiatric: alert, normal mood/affect Hospital Course 86 y/o F who was admitted on 09/27 for rhabdo and AMS Acute metabolic encephalopathy likely related to UTI POA, sepsis-with tachycardia, hypotension, and leukocytosis on admission. Her urine culture is growing pansensitive Escherichia coli, also with acute sinusitis on CT of the head. CT of the head otherwise negative. Leukocytosis is improved Continue Levaquin for 7 day course and switched to by mouth for discharge levaquin will cover also for her acute sinusitis Blood cultures neg Rhabdo, acute kidney injury: in the setting of several recent falls in which nursing has found pt on the floor. Baseline creatinine less than 1, but was 3.7 on admission likely secondary to ATN from hypotension, prerenal azotemia. Creatinine improved to 1.2 after IV fluids. CK mildly elevated at 1040 and now improved Renal ultrasound showed mild left pelvicaliectasis without doris hydronephrosis -Discontinue IV fluids, cont spirnolactone on discharge HTN: HypoTN on arrival, but now hypertensive Holding spironolactone and quinapril for acute kidney injury but now okay to restart ROSS inhibitor-we'll start lisinopril 10 mg daily as quinapril was not available -Hydralazine 10 mg IV when necessary for blood pressure greater than 180/100 Monitor on tele -Restart spironolactone Hypothyroid: TSH WNL -Continue levothyroxine Spinal stenosis-stable -Continue gabapentin and Nucynta GERD-stable -Continue Protonix Dementia-with delirium on admission and with some sundowning -Supportive care -IM Haldol when necessary Full code per pt. She does have a living will that states that she is DNR/DNI in the setting of permanent brain damage or need for mechanical support Reg diet per [facility] records Heparin for DVT proph CM: Pt lives at [facility] Total Time Spent: Greater than 30 minutes This includes examination of the patient, discharge planning, medication reconciliation, and communication with other providers. Discharge Instructions Please refer to the electronic Patient Visit Report (Discharge Instructions) for additional information.
[2016-10-12] MEDS ORDERED: SRQ25 PO (09:52)
[2016-10-12] MEDS ORDERED: TAPE50TA5 PO (09:52)
[2016-10-12] MEDS ORDERED: MRLP17X PO (09:52)
[2016-10-12] MEDS ORDERED: AMX500 PO (09:54)
[2016-10-12] MEDS ORDERED: NIFE30TA2 PO (09:54)
[2016-10-12] MEDS ORDERED: NYSS5 PO (09:54)
[2016-10-12] MEDS ORDERED: NCY50 PO (09:54)
[2016-11-18] MEDS ORDERED: GABA1CAP5 PO (14:11)
[2016-11-18] MEDS ORDERED: HYDR4TAB78 PO (14:11)
[2016-12-18] MEDS ORDERED: GABA-112 PO (13:16)
== END 2016-09-30 14:05 | disposition home or self-care (01) | DRG 871 ==
LOC: ENRESERVDT → ENRESERVTM → C.EDB 13:29 → C.MED 17:25
PROVIDERS: ADMIT Family Medicine; ATTEND Hospitalist
DX: A41.9 Sepsis, unspecified organism (principal); G93.41 Metabolic encephalopathy; N17.0 Acute kidney failure with tubular necrosis; M62.82 Rhabdomyolysis; F05 Delirium due to known physiological condition; N39.0 Urinary tract infection, site not specified; D64.9 Anemia, unspecified; B96.20 Unspecified Escherichia coli [E. coli] as the cause of diseases classified elsewhere; K21.9 Gastro-esophageal reflux disease without esophagitis; M81.0 Age-related osteoporosis without current pathological fracture; E03.9 Hypothyroidism, unspecified; M51.36 Other intervertebral disc degeneration, lumbar region; F03.90 Unspecified dementia, unspecified severity, without behavioral disturbance, psychotic disturbance, mood disturbance, and anxiety; R00.0 Tachycardia, unspecified; I10 Essential (primary) hypertension; M48.00 Spinal stenosis, site unspecified; J01.90 Acute sinusitis, unspecified; I95.9 Hypotension, unspecified; D72.829 Elevated white blood cell count, unspecified; R29.6 Repeated falls; R79.89 Other specified abnormal findings of blood chemistry; Z66 Do not resuscitate; Z79.899 Other long term (current) drug therapy; Z79.891 Long term (current) use of opiate analgesic

== ENCOUNTER 2016-10-08 14:38 | Observation (INO) | payer BC, OTHER ==
[~2016-10-08] VITALS: Ht 152.4 cm; Wt 48.2 kg
[~2016-10-08 14:38] MED LIST changes: +ACET-1256 PO; -CRFUDL PO; -LDDP5 TD; -LEVO50TA PO; +LEVO75TA5 PO
[2016-10-08] MEDS ORDERED: OXYCODONE HCL IR 5 MG TAB (IMMEDIATE RELEASE) PO STA (15:46)
[2016-10-08 16:39] LABS: BASO % 0.3 %; BASO ABS # 0.03 K/uL (0-0.2); COMPLETE YES; EOS % 4.4 %; HEMATOCRIT 34.1 % (37-47); IG% 0.4 %; LYMPH % 12.9 %; LYMPH ABS # 1.28 K/uL (1.2-3.4); MEAN CORPUSCULAR HEMOGLOBIN 31.5 pg (25-34); MEAN CORPUSCULAR HGB CONC 33.1 g/dl (32-36); MEAN PLATELET VOLUME 8.7 fL (7.4-10.4); MONO % 8.5 %; NEUT % 73.5 %; PLATELET COUNT 419 K/uL (130-400); RED BLOOD COUNT 3.59 M/uL (4.2-5.4)
[2016-10-08 16:53] LABS: ALT/SGPT 21 U/L (12-78); AST/SGOT 18 U/L (15-37); BLOOD UREA NITROGEN 44 mg/dl (7-18); BUN/CREATININE RATIO 23.3 (10-20); CALCIUM 9.3 mg/dl (8.5-10.1); CARBON DIOXIDE 29 mmol/L (21-32); CHLORIDE 103 mmol/L (98-107); GLUCOSE 102 mg/dl (70-99); MAGNESIUM 2.3 mg/dl (1.8-2.4); POTASSIUM 4.8 mmol/L (3.5-5.1); SODIUM 137 mmol/L (136-145)
--- NOTE | 2016-10-08 16:56 | DIAGNOSTIC IMAGING REPORT ---
CHEST 2 VIEWS ROUTINE CLINICAL HISTORY: Weakness COMPARISON STUDY: 09/19/2016 FINDINGS: There is persistent elevation of the right hemidiaphragm. There is mild chronic basilar interstitial thickening. There is no failure. There are no pleural effusions. There is an opacity paralleling the aorta in the retrocardiac portion of the chest. This likely reflects focal atelectasis or a hiatal hernia.[ IMPRESSION: Nonspecific left basilar opacity, likely representing para-aortic atelectasis, or a hiatal hernia. This remain similar to the prior study. Electronically signed by: Lonnie Humphreys M.D. 10/08/2016 4:55 PM Dictated Date/Time: 10/08/2016 4:52 PM
[2016-10-08 17:01] LABS: ALKALINE PHOSPHATASE 64 U/L (45-117); CKMB/CK RATIO 1.6 (0-3.0)
--- NOTE | 2016-10-08 17:01 | EMERGENCY ROOM VISIT NOTE ---
History Report prepared by Mark: Estelita Alvarez Under the Supervision of: Dr. Tristan Marroquin D.O. First contact with patient: 15:32 Chief Complaint: FALL Stated Complaint: LEG PAIN,FALL,LOW OXYGEN History of Present Illness The patient is an 86 year old female who presents to the Emergency Room with complaints of multiple falls starting yesterday afternoon. She comes from [facility]. The patient's daughter was told by the staff that she has had some urine incontinence and low O2 sat. She has fallen twice in the past 24 hours and is unable to ambulate. The patient has spinal stenosis in her lumbar spine which are pinching nerves causing her leg pain. Her right leg is more painful than her left leg. She reports her falls were caused by her leg pain. She reports some abdominal pain, back pain and neck pain. She complains mostly of her leg pain. She denies any headache, trouble urinating, chest pain, SOB, nausea, vomiting, or loss of consciousness. Source of History: patient Onset: yesterday afternoon Position: other (global) Quality: other (fall) Timing: other (multiple) Associated Symptoms: + abdominal pain, + back pain, + neck pain, No LOC, No SOB, No chest pain, No nausea, No vomiting Note: Pt had urine incontinence, low O2, unable to ambulate, leg pain. Pt denies trouble urinating. Review of Systems See HPI for pertinent positives & negatives. A total of 10 systems reviewed and were otherwise negative. Past Medical & Surgical Medical Problems: (1) Ambulatory dysfunction (2) Anemia (3) GI bleed (4) Hypertension (5) Hypothyroidism (6) Lumbar degenerative disc disease (7) Osteoporosis (8) Rhabdomyolysis (9) Spinal stenosis Family History Heart disease Hypertension Social History Smoking Status: Never Smoker Drug Use: none Marital Status: Housing Status: other Occupation Status: retired Current/Historical Medications Scheduled Calcium Carbonate-Vitamin D (Calcium + D3 600-200 mg-Unit), 1 TAB PO BID Esomeprazole Magnesium (Esomeprazole Magnesium), 40 MG PO DAILY Gabapentin (Neurontin), 300 MG PO TID Levothyroxine Sodium (Levothyroxine Sodium), 1 TAB PO DAILY Quinapril Hcl (Accupril), 40 MG PO DAILY Spironolactone (Aldactone), 25 MG PO DAILY Tapentadol Hcl (Nucynta), 50 MG PO BID Scheduled PRN Acetaminophen (Tylenol), 1,000 MG PO Q8H PRN for Fever Tapentadol HCl (Nucynta), 50 MG PO Q6 PRN for Pain Allergies Coded Allergies: No Known Allergies (Unverified , 10/08/16) Physical Exam Vital Signs Date Time Temp Pulse Resp B/P Pulse Ox O2 Delivery O2 Flow Rate FiO2 10/08/16 17:00 76 18 112/71 93 Room Air 10/08/16 16:26 79 10/08/16 14:53 36.7 84 20 140/70 93 Room Air Physical Exam GENERAL: Patient is awake, alert, somewhat anxious appearing, and frail. EYES: The conjunctivae are clear. The pupils are round and reactive. EARS, NOSE, MOUTH AND THROAT: The nose is without any evidence of any deformity. Mucous membranes are moist tongue is midline NECK: Upper cervical spine is tender to palpation, ROM appeared intact and not limited. RESPIRATORY: Normal respiratory effort is noted there is no evidence of wheezing rhonchi or rales CARDIOVASCULAR: Regular rate and rhythm noted there no murmurs rubs or gallops normal S1 normal S2 GASTROINTESTINAL: The abdomen is soft. Bowel sounds are present in all quadrants. Abdomen is nontender BACK: Lower lumbar spine tender to palpation, ROM appeared intact. MUSCULOSKELETAL/EXTREMITIES: There is no evidence of gross deformity full range of motion is noted in the hips and shoulders SKIN: There is trace pedal edema bilaterally, warm, dry, pulse symmetric in both lower extremities. NEUROLOGIC: Patient is awake alert and oriented x3, strength is symmetric but diminished in both lower extremities, no facial droop noted. Medical Decision & Procedures ER Provider Diagnostic Interpretation: X-ray results as stated below per interpretation by me and the radiologist. Radiology results as stated below per my review and radiologist interpretation: CHEST 2 VIEWS ROUTINE CLINICAL HISTORY: Weakness COMPARISON STUDY: 09/19/2016 FINDINGS: There is persistent elevation of the right hemidiaphragm. There is mild chronic basilar interstitial thickening. There is no failure. There are no pleural effusions. There is an opacity paralleling the aorta in the retrocardiac portion of the chest. This likely reflects focal atelectasis or a hiatal hernia.[ IMPRESSION: Nonspecific left basilar opacity, likely representing para-aortic atelectasis, or a hiatal hernia. This remain similar to the prior study. Electronically signed by: Lonnie Humphreys M.D. 10/08/2016 4:55 PM Dictated Date/Time: 10/08/2016 4:[address] OF THE CERVICAL SPINE CLINICAL HISTORY: Neck pain status post trauma COMPARISON STUDY: 09/27/2016 CT DOSE: 1534.74 mGy.cm TECHNIQUE: CT scan of the cervical spine was performed from the skull base to the thoracic inlet. Images are reviewed in the axial, sagittal, and coronal planes. IV contrast was not administered for this examination. FINDINGS: The visualized portions of the lung apices reveal no evidence of pneumothorax. The prevertebral soft tissues are normal. No fractures or traumatic subluxations are visualized. There are advanced multilevel degenerative changes. There is marked disc space narrowing and endplate erosive change see 4-5, 5-6, and C6-7 levels. There is 2.7 mm of anterior subluxation of C3 on C4, unchanged the prior study. There is 2.3 mm of retrolisthesis of C4 on C5, unchanged the prior study. There is 2.3 mm of anterior subluxation of C7 on T1, unchanged the prior study. There is bony fragmentation at the C4-C7 levels, likely degenerative. There is an old C4 transverse process fracture. IMPRESSION: 1. No acute fractures or traumatic subluxations 2. Advanced multilevel degenerative change, similar to the prior study dated 09/27/2016 Electronically signed by: Lonnie Humphreys M.D. 10/08/2016 5:07 PM Dictated Date/Time: 10/08/2016 5:[address] HEAD WITHOUT CONTRAST (CT) CLINICAL HISTORY: Change in mental status. Weakness. COMPARISON STUDY: 09/27/2016 TECHNIQUE: Axial CT of the brain is performed from the vertex to the skull base. IV contrast was not administered for this examination. CT DOSE: FINDINGS: No intra or extra-axial mass lesions are visualized. There is no CT evidence of acute cortical infarction. There is no evidence of midline shift. There is no acute hemorrhage. No calvarial fractures are visualized. There are patchy white matter hypodensities likely on a small vessel basis. There is mild ventricular dilatation, likely secondary to volume loss. There is moderate generalized atrophy. There is no evidence of acute sinusitis IMPRESSION: No acute intracranial findings Electronically signed by: Lonnie Humphreys M.D. 10/08/2016 5:03 PM Dictated Date/Time: 10/08/2016 5:[address] LUMBAR SPINE WITHOUT CT DOSE: CLINICAL HISTORY: Back pain status post trauma. History of prior compression fractures. TECHNIQUE: Helical images were acquired in transverse plane. Reformatted sagittal and coronal images were reviewed. CONTRAST: No contrast was administered COMPARISON STUDY: January 31, 2016 FINDINGS: L1-2 level: There are extensive endplate erosive changes. There is a circumferential disc bulge. There is moderate spinal stenosis. L2-3 level: There is marked disc desiccation. There is a circumferential disc bulge. There is mild spinal stenosis. There is no significant foraminal narrowing L3-4 level: There is a circumferential disc bulge. There is marked disc degeneration. There is moderate to severe spinal stenosis. There is a posterior osteophyte arising from the left posterior aspect of the L4 vertebral body resulting in thecal sac deformity.. L4-5 level: There is a circumferential disc bulge. There is marked disc degeneration and endplate irregularity. There is severe spinal stenosis. L5-S1 level: There is a circumferential disc bulge. There is a disc osteophyte complex. There is moderate spinal stenosis. No acute fractures or traumatic subluxations are visualized. IMPRESSION: 1. No acute fractures or traumatic subluxations are visualized 2. Advanced multilevel spondylitic changes with multilevel disc space narrowing, endplate sclerosis, and endplate erosive change. 3. Multilevel spinal stenosis Electronically signed by: Lonnie Humphreys M.D. 10/08/2016 5:14 PM Dictated Date/Time: 10/08/2016 5:10 PM Laboratory Results 10/08/16 16:30 Red Blood Count 3.59, Mean Corpuscular Volume 95.0, Mean Corpuscular Hemoglobin 31.5, Mean Corpuscular Hemoglobin Concent 33.1, Mean Platelet Volume 8.7, Neutrophils (%) (Auto) 73.5, Lymphocytes (%) (Auto) 12.9, Monocytes (%) (Auto) 8.5, Eosinophils (%) (Auto) 4.4, Basophils (%) (Auto) 0.3, Neutrophils # (Auto) 7.27, Lymphocytes # (Auto) 1.28, Monocytes # (Auto) 0.84, Eosinophils # (Auto) 0.44, Basophils # (Auto) 0.03 Test 10/08/16 15:57 10/08/16 16:30 10/08/16 17:50 Bedside Glucose 112 mg/dl (70-90) White Blood Count 9.90 K/uL (4.8-10.8) Red Blood Count 3.59 M/uL (4.2-5.4) Hemoglobin 11.3 g/dL (12.0-16.0) Hematocrit 34.1 % (37-47) Mean Corpuscular Volume 95.0 fL (80-100) Mean Corpuscular Hemoglobin 31.5 pg (25-34) Mean Corpuscular Hemoglobin Concent 33.1 g/dl (32-36) Platelet Count 419 K/uL (130-400) Mean Platelet Volume 8.7 fL (7.4-10.4) Neutrophils (%) (Auto) 73.5 % Lymphocytes (%) (Auto) 12.9 % Monocytes (%) (Auto) 8.5 % Eosinophils (%) (Auto) 4.4 % Basophils (%) (Auto) 0.3 % Neutrophils # (Auto) 7.27 K/uL (1.4-6.5) Lymphocytes # (Auto) 1.28 K/uL (1.2-3.4) Monocytes # (Auto) 0.84 K/uL (0.11-0.59) Eosinophils # (Auto) 0.44 K/uL (0-0.5) Basophils # (Auto) 0.03 K/uL (0-0.2) RDW Standard Deviation 46.7 fL (36.4-46.3) RDW Coefficient of Variation 13.4 % (11.5-14.5) Immature Granulocyte % (Auto) 0.4 % Immature Granulocyte # (Auto) 0.04 K/uL (0.00-0.02) Phosphorus Level 4.0 mg/dl (2.5-4.9) Magnesium Level 2.3 mg/dl (1.8-2.4) Total Bilirubin 0.3 mg/dl (0.2-1) Direct Bilirubin 0.1 mg/dl (0-0.2) Aspartate Amino Transf (AST/SGOT) 18 U/L (15-37) Alanine Aminotransferase (ALT/SGPT) 21 U/L (12-78) Alkaline Phosphatase 64 U/L (45-117) Total Creatine Kinase 103 U/L (26-192) Creatine Kinase MB 1.6 ng/ml (0.5-3.6) Creatine Kinase MB Ratio 1.6 (0-3.0) Troponin I < 0.015 ng/ml (0-0.045) Pro-B-Type Natriuretic Peptide 183 pg/ml (0-1800) Total Protein 7.5 gm/dl (6.4-8.2) Albumin 3.3 gm/dl (3.4-5.0) Thyroid Stimulating Hormone (TSH) 2.260 uIu/ml (0.300-4.500) Prothrombin Time 10.6 SECONDS (9.0-12.0) Prothromb Time International Ratio 1.0 (0.9-1.1) Activated Partial Thromboplast Time 27.6 SECONDS (21.0-31.0) Partial Thromboplastin Ratio 1.1 Laboratory results per my review. Medications Administered Medications (Trade) Dose Ordered Sig/Declan Route Start Time Stop Time Status Last Admin Dose Admin Sodium Chloride (Nss 500ml) 500 ml @ 999 mls/hr Q31M STAT IV 10/08/16 17:18 10/08/16 17:48 DC 10/08/16 18:06 999 MLS/HR Acetaminophen (Tylenol Tab) 650 mg Q4H PRN PO 10/08/16 18:15 11/07/16 18:14 10/09/16 01:00 650 MG Tapentadol (Nucynta Tab) 50 mg Q6 PRN PO 10/08/16 18:15 10/22/16 18:14 10/09/16 04:56 50 MG ECG Indication: other (fall) Rate (beats per minute): 76 Rhythm: sinus rhythm Findings: 1st degree AV block, no ectopy, other (no ST segment changes) Comparison ECG Date: 29-Sep-2016 Change: no significant change ED Course 1540: The patient was evaluated in room B10. A complete history and physical examination were performed. 1546: Ordered Oxycodone HCl 5 mg PO. 1718: Ordered NSS 500 ml @ 999 mls/hr IV. 1741: Upon reevaluation, the patient is still unable to ambulate. I discussed results and treatment plan with her. She verbalizes agreement and understanding. The patient will be evaluated for further management and care. 1755: I discussed the patient's case with Dr. Jessa, [facility] - hospitalist. The patient will be evaluated for further management. Medical Decision Prior records/ancillary studies reviewed and summarized above. Nursing notes reviewed. Additional history obtained from family. The patient's history was concerning for weakness. Differential diagnosis: Etiologies such as metabolic, infection, hypo/hyperglycemia, electrolyte abnormalities, cardiac sources, intracerebral event, toxicologic, neurologic, as well as others were entertained. The patient is an 86-year-old female who presented to the emergency department with her family member from a personal alf because of inability to ambulate. The patient does have significant spinal stenosis. This situation is only gotten worse for her recently. The patient was treated with pain medication in the emergency department. I discussed the patient's laboratory and radiographic studies with her. Because of her severe debility I discussed her case with the on-call [facility] hospitalist group. They've agreed to evaluate the patient in the emergency department for further management and disposition. Consults Time Called: 1748 Consulting Physician: MONICA Levi - hospitalist Returned Call: [phone] I discussed the patient's case with him. The patient will be evaluated for further management. Impression Primary Impression: Spinal stenosis Additional Impressions: Low back pain Weakness Unable to ambulate Acute kidney injury Dehydration Scribe Attestation The scribe's documentation has been prepared under my direction and personally reviewed by me in its entirety. I confirm that the note above accurately reflects all work, treatment, procedures, and medical decision making performed by me. Departure Information Dispostion Being Evaluated By Hospitalist Referrals Inocencia Monterroso DO (PCP) Patient Instructions My [facility] Health Problem Qualifiers
--- NOTE | 2016-10-08 17:04 | DIAGNOSTIC IMAGING REPORT ---
CT HEAD WITHOUT CONTRAST (CT) CLINICAL HISTORY: Change in mental status. Weakness. COMPARISON STUDY: 09/27/2016 TECHNIQUE: Axial CT of the brain is performed from the vertex to the skull base. IV contrast was not administered for this examination. CT DOSE: FINDINGS: No intra or extra-axial mass lesions are visualized. There is no CT evidence of acute cortical infarction. There is no evidence of midline shift. There is no acute hemorrhage. No calvarial fractures are visualized. There are patchy white matter hypodensities likely on a small vessel basis. There is mild ventricular dilatation, likely secondary to volume loss. There is moderate generalized atrophy. There is no evidence of acute sinusitis IMPRESSION: No acute intracranial findings Electronically signed by: Lonnie Humphreys M.D. 10/08/2016 5:03 PM Dictated Date/Time: 10/08/2016 5:02 PM
--- NOTE | 2016-10-08 17:08 | DIAGNOSTIC IMAGING REPORT ---
CT OF THE CERVICAL SPINE CLINICAL HISTORY: Neck pain status post trauma COMPARISON STUDY: 09/27/2016 CT DOSE: 1534.74 mGy.cm TECHNIQUE: CT scan of the cervical spine was performed from the skull base to the thoracic inlet. Images are reviewed in the axial, sagittal, and coronal planes. IV contrast was not administered for this examination. FINDINGS: The visualized portions of the lung apices reveal no evidence of pneumothorax. The prevertebral soft tissues are normal. No fractures or traumatic subluxations are visualized. There are advanced multilevel degenerative changes. There is marked disc space narrowing and endplate erosive change see 4-5, 5-6, and C6-7 levels. There is 2.7 mm of anterior subluxation of C3 on C4, unchanged the prior study. There is 2.3 mm of retrolisthesis of C4 on C5, unchanged the prior study. There is 2.3 mm of anterior subluxation of C7 on T1, unchanged the prior study. There is bony fragmentation at the C4-C7 levels, likely degenerative. There is an old C4 transverse process fracture. IMPRESSION: 1. No acute fractures or traumatic subluxations 2. Advanced multilevel degenerative change, similar to the prior study dated 09/27/2016 Electronically signed by: Lonnie Humphreys M.D. 10/08/2016 5:07 PM Dictated Date/Time: 10/08/2016 5:03 PM
--- NOTE | 2016-10-08 17:15 | DIAGNOSTIC IMAGING REPORT ---
CT LUMBAR SPINE WITHOUT CT DOSE: CLINICAL HISTORY: Back pain status post trauma. History of prior compression fractures. TECHNIQUE: Helical images were acquired in transverse plane. Reformatted sagittal and coronal images were reviewed. CONTRAST: No contrast was administered COMPARISON STUDY: January 31, 2016 FINDINGS: L1-2 level: There are extensive endplate erosive changes. There is a circumferential disc bulge. There is moderate spinal stenosis. L2-3 level: There is marked disc desiccation. There is a circumferential disc bulge. There is mild spinal stenosis. There is no significant foraminal narrowing L3-4 level: There is a circumferential disc bulge. There is marked disc degeneration. There is moderate to severe spinal stenosis. There is a posterior osteophyte arising from the left posterior aspect of the L4 vertebral body resulting in thecal sac deformity.. L4-5 level: There is a circumferential disc bulge. There is marked disc degeneration and endplate irregularity. There is severe spinal stenosis. L5-S1 level: There is a circumferential disc bulge. There is a disc osteophyte complex. There is moderate spinal stenosis. No acute fractures or traumatic subluxations are visualized. IMPRESSION: 1. No acute fractures or traumatic subluxations are visualized 2. Advanced multilevel spondylitic changes with multilevel disc space narrowing, endplate sclerosis, and endplate erosive change. 3. Multilevel spinal stenosis Electronically signed by: Lonnie Humphreys M.D. 10/08/2016 5:14 PM Dictated Date/Time: 10/08/2016 5:10 PM
[2016-10-08] MEDS ORDERED: SODIUM CHLORIDE 0.9% 500ML 500 ML IV STA (17:18)
[2016-10-08 18:10] LABS: PARTIAL THROMBOPLASTIN RATIO 1.1; PROTHROMBIN TIME (PATIENT) 10.6 SECONDS (9.0-12.0)
[2016-10-08] MEDS ORDERED: ALUMINUM/MAGNESIUM/SIMETH (MAALOX MAX) 30 ML UDC PO PRN (18:15)
[2016-10-08] MEDS ORDERED: ACETAMINOPHEN 500 MG TAB PO PRN (18:15)
[2016-10-08] MEDS ORDERED: ONDANSETRON INJ 2 MG/ML 2 ML VIAL IV PRN (18:15)
[2016-10-08] MEDS ORDERED: MAGNESIUM HYDROXIDE SUSP 30 ML UDC PO PRN (18:15)
[2016-10-08] MEDS ORDERED: ZOLPIDEM TARTRATE 5 MG TAB PO PRN (18:15)
[2016-10-08] MEDS ORDERED: IV FLUIDS COMPLETED PRN (18:30)
--- NOTE | 2016-10-08 18:48 | Progress Note ---
Progress Note Date of Service October 08, 2016. Progress Note ambulatory dysfunction, need formerly [facility], [id number]
--- NOTE | 2016-10-08 19:54 | HISTORY & PHYSICAL EXAMINATION ---
DATE OF ADMISSION: 10/08/2016 This is observation H\T\P, 31 minutes. CHIEF COMPLAINT: Frequent fall, pain. HISTORY OF PRESENT ILLNESS: The patient is an 86-year-old white female with a significant past medical history of anemia, GI bleeding, hypertension, hypothyroidism, lumbar degenerative disc disease, osteoporosis, rhabdo, spinal stenosis coming to the hospital Emergency Department because of multiple falls, starting from yesterday afternoon. The patient is a resident in the [facility], I heard she is in personal care facilities. Their daughter was at the bedside in the Emergency Room per ED physicians. The patient was having some urinary incontinence and oxygen level was low prior to ED visit per daughter's report. She was fell 2 times in the past 24 hours and unable to ambulate. The patient has pain in her lumbar spine which is causing her pain. Her right leg is more painful than left leg. The patient reported the pain is caused by the falls. She reported some abdominal pain, back pain and neck pain. This is all documented by ED physicians. In the Emergency Room, she got some pain medicines. When I interviewed with her, she has no report of any pain. She was in no acute distress, conversational, moved extremities, did not complain anywhere pain. REVIEW OF SYSTEMS: Review of system is limited; however, she reported no fever, no chills. No nausea, vomiting, abdominal pain, diarrhea, or constipation. Denied dysuria, urgency, or frequencies. Denied chest pain, palpitation, lower extremity swelling. Denied facial droop, slurry speeches or local weakness. Past medical history like I mentioned in the above which included recent hospital admission, she was discharged on September 30. ALLERGIES: No known drug allergies. PAST MEDICAL HISTORY: 1. Acute metabolic encephalopathy from UTI. 2. Rhabdo. 3. ATN from hypotension. 4. Hypertension. 5. Hypothyroidism. 6. Spinal stenosis. 7. GERD. 8. Dementia. PAST SURGICAL HISTORY: None. FAMILY HISTORY: Not significant. SOCIAL HISTORY: Denied tobacco abuse disorder, denied alcohol abuse disorder, denied illicit drug abuse. MEDICATIONS: Taking at home which include Tylenol 1000 mg p.o. q. 8 hour p.r.n., calcium plus vitamin D 1 tab p.o. b.i.d.; esomeprazole 40 mg p.o. daily, gabapentin 300 mg p.o. t.i.d., levothyroxine 75 mcg 1 tab p.o. daily, Accupril 40 mg p.o. daily, Aldactone 25 mg p.o. daily, Nucynta 50 mg p.o. q. 6 hours p.r.n. for the pain and 50 mg p.o. b.i.d. scheduled. PHYSICAL EXAMINATION: VITAL SIGNS: Temperature is 36.7, pulse 84, respiratory rate 20, blood pressure 140/70, pulse ox was 93% in room air. GENERAL: The patient is a white female, awake, alert, conversational, looks frail and weak. HEAD: Normocephalic. EYES: Pupils equal, round, responds to light. EARS: Normal. NOSE: Normal. NECK: Supple. Thyroid no enlargement. Trachea midline. HEART: Regular rhythm. S1, S2. LUNGS: Decreased breathing sounds. There was no wheezing, rhonchi or crackles. ABDOMEN: Soft, nontender. Bowel sound was positive. GENITOURINARY AND RECTAL: Deferred. EXTREMITIES: Moves upper and lower extremities. MUSCULOSKELETAL: There was no limited range of motion. There was no obvious tenderness in the C-spine, T-spine and L-spine. SKIN: Has no rashes. NEUROLOGIC: Cranial nerve II-XII was intact. There was no local deficits. LABORATORY STUDIES: WBC 9.9, hemoglobin 11, platelet 419. PT/INR was 10/1. Sodium 137, potassium 4.8, BUN 44, creatinine 1.9. Random blood glucose 102. Phosphorus was 4. Cardiac enzyme troponin was negative. TSH was 2.26. IMAGING STUDIES: Cervical spine, no acute fractures or traumatic subluxations. There was advanced multiple level degenerative changes similar to previous studies. Chest x-ray: There was nonspecific left basilar opacities, no acute disease. Head CT: There was no acute intracranial findings. Lumbar spine CT studies: No acute fractures or traumatic subluxations. Again there were multiple spondylitic changes in multiple levels of disc space narrowing, endplate stenosis and endplate erosive changes. Multiple spines stenoses. ASSESSMENT AND PLAN: An 86-year-old white female with the problems below: 1. Severe multiple spinal stenoses. Has advanced multiple spondylitic changes and endplate erosive changes. There was cervical spine stenosis as well. 2. Uncontrolled pain from degenerative disease of the spine, ambulatory dysfunction and frequent falls. 3. Chronic kidney disease with EGFR 27, actually it is best of her baseline. 4. Hypothyroidism. TSH was normal. Basically, patient had significant generalized weakness, frequent falls, ambulatory dysfunction. Therefore, we will keep her in observation, pain control, PT/OT evaluation, continue to watch kidney function, continue home medication, and social work instructor for the discharge plan, probably need to be in a shelter facility, not in personal care. GI and DVT prophylaxes is covered. The patient is full code per previous H\T\P and discharge. MTDD
[2016-10-08] MEDS ORDERED: POLYETHYLENE (MIRALAX) 17 GM PACK PO PRN (20:15)
[2016-10-08] MEDS: TAPENTADOL HCL 50 MG TAB PO SCH (20:42)
[2016-10-08] MEDS: GABAPENTIN 300 MG CAP PO SCH (20:43)
[2016-10-08] MEDS: CALCIUM 600MG + VIT D 400 IU TAB PO SCH (20:43)
[2016-10-08] MEDS: HEPARIN SOD 5000 UNIT/0.5 ML CARP SQ SCH (20:46)
[2016-10-08 21:13] VITALS: BP 169/71; PULSE 86; TEMP 36.9; O2SAT 95; Ht 152.4 cm; Wt 48.2 kg
[2016-10-08 22:53] LABS: URINE APPEARANCE CLEAR (CLEAR); URINE BILIRUBIN NEG (NEG); URINE COLOR YELLOW; URINE NITRITE NEG (NEG); URINE SPECIFIC GRAVITY 1.015 (1.000-1.030); UROBILINOGEN NEG (NEG)
[2016-10-08 22:55] LABS: MANUAL MICROSCOPIC REQUIRED? NO; REVIEW REQ? NO
[2016-10-09] VITALS: BP 105/61; PULSE 88; TEMP 36.8; O2SAT 93; O2SAT 95
[2016-10-09] MEDS: ACETAMINOPHEN 325 MG TAB PO PRN (01:00)
[2016-10-09] MEDS ORDERED: LEVOFLOXACIN CONSULT ACTIVE PRN (01:30)
[2016-10-09] MEDS ORDERED: LEVOFLOXACIN / D5W 750 MG in PREMIXED IN D5W 150 ML IV SCH (01:30)
[2016-10-09] MEDS: TAPENTADOL HCL 50 MG TAB PO PRN (04:56)
[2016-10-09] MEDS: LEVOTHYROXINE 75 MCG TAB PO SCH (04:56)
[2016-10-09 07:40] VITALS: BP 142/65; PULSE 74; TEMP 36.4; O2SAT 90
[2016-10-09] MEDS: PANTOprazole SOD 40 MG TAB PO SCH (07:44)
[2016-10-09] MEDS: GABAPENTIN 300 MG CAP PO SCH ×3 (07:44→20:18)
[2016-10-09] MEDS: CALCIUM 600MG + VIT D 400 IU TAB PO SCH ×2 (07:44→20:19)
[2016-10-09] MEDS ORDERED: SPIRONOLACTONE 25 MG TAB PO SCH (08:00)
[2016-10-09] MEDS ORDERED: ENALAPRIL MALEATE 10 MG TAB PO SCH (08:00)
[2016-10-09] MEDS: TAPENTADOL HCL 50 MG TAB PO SCH ×3 (08:41→22:00)
[2016-10-09] MEDS: HEPARIN SOD 5000 UNIT/0.5 ML CARP SQ SCH ×2 (09:38→20:20)
[2016-10-09] MEDS: SODIUM CHLORIDE 0.9% 1000ML 1,000 ML IV SCH (10:34)
[2016-10-09 11:00] LABS: BUN/CREATININE RATIO 24.8 (10-20); CALCIUM 9.1 mg/dl (8.5-10.1); CREATININE 1.6 mg/dl (0.60-1.20); POTASSIUM 4.4 mmol/L (3.5-5.1)
[2016-10-09 14:39] VITALS: BP 95/57; PULSE 80; TEMP 36.8; O2SAT 99
[2016-10-09] MEDS: QUETIAPINE FUMARATE 25 MG TAB PO PRN (18:31)
--- NOTE | 2016-10-09 21:59 | Progress Note ---
Subjective Date of Service: October 09, 2016. Subjective Pt evaluation today including: conversation w/ patient, conversation w/ family (niece (POA) by phone), physical exam, chart review, lab review, review of studies (CT c-spine and l-spine), review of inpatient medication list Pain: legs, b/l thighs (anterior) PO Intake: fair per staff Voiding: incontinence patient pleasantly confused during the visit her only complaint was that of b/l leg pain she thinks "she still lives at the home in which she grew up in" she could not tell me where she was today denied any pain or weakness in arms niece reports 4 falls about 10-14 days ago, and then at least 2 falls prior to this admission niece wishing for patient to go to SNF at [facility] Problem List Medical Problems: (1) Acute kidney injury Status: Acute (2) Acute renal failure Status: Acute (3) Degenerative disc disease Status: Acute (4) Dehydration Status: Acute (5) Low back pain Status: Acute (6) Lumbar radiculopathy Status: Acute (7) Sinusitis Status: Acute (8) Spinal stenosis Status: Chronic (9) Unable to ambulate Status: Acute (10) Upper GI bleed Status: Acute (11) UTI (urinary tract infection) Status: Acute (12) Weakness Status: Acute Review of Systems unable to obtain due to dementia Objective Vital Signs Date Time Temp Pulse Resp B/P Pulse Ox O2 Delivery O2 Flow Rate FiO2 10/09/16 16:00 Room Air 10/09/16 14:39 36.8 80 20 95/57 99 Room Air 10/09/16 08:00 Room Air 10/09/16 07:40 36.4 74 18 142/65 90 Room Air 10/09/16 00:00 95 Room Air 10/09/16 00:00 36.8 88 20 105/61 93 Room Air Physical Exam General Appearance: no apparent distress ENT: pharynx normal Neck: no JVD Respiratory/Chest: lungs clear, no respiratory distress, no accessory muscle use Cardiovascular: regular rate, rhythm, no gallop, no murmur Abdomen: normal bowel sounds, non tender, soft, no organomegaly Extremities: no pedal edema Neurologic/Psychiatric: alert, + motor weakness (?foot drop on right; weakness right foot with plantar & dorsi-flexion; left foot with intact plantar and dorsiflexion; strength b/l hip flexion near 5/5; strength quadriceps seemingly 5 /5; no proximal muscle weakness of upper extremities ), + disoriented Laboratory Results Last 24 Hours Test 10/08/16 22:45 10/09/16 10:22 Urine Color YELLOW Urine Appearance CLEAR Urine pH 5.0 Urine Specific Stirling 1.015 Urine Protein NEG Urine Glucose (UA) NEG Urine Ketones NEG Urine Occult Blood NEG Urine Nitrite NEG Urine Bilirubin NEG Urine Urobilinogen NEG Urine Leukocyte Esterase SMALL Urine WBC (Auto) >30 /hpf Urine RBC (Auto) 0-4 /hpf Urine Hyaline Casts (Auto) 5-10 /lpf Urine Epithelial Cells (Auto) 5-10 /lpf Urine Bacteria (Auto) 2+ Erythrocyte Sedimentation Rate 35 mm/hr Sodium Level 140 mmol/L Potassium Level 4.4 mmol/L Chloride Level 106 mmol/L Carbon Dioxide Level 29 mmol/L Anion Gap 5.0 mmol/L Blood Urea Nitrogen 40 mg/dl Creatinine 1.60 mg/dl Est Creatinine Clear Calc Drug Dose 17.8 ml/min Estimated GFR () 33.2 Estimated GFR (Non- 28.7 BUN/Creatinine Ratio 24.8 Random Glucose 87 mg/dl Calcium Level 9.1 mg/dl Vitamin B12 Level 576 pg/mL Assessment and Plan 86yo female: 1. frequent falls - exact etiology uncertain but I suspect it is due to her severe lumbar spinal stenosis. She seems to have a foot drop on the right. C- spine DJD could be contributing but she does not appear to have upper extremity weakness and thus much less likely. Previous records from orthopedics in fall 2016 highlight the severity of her lumbar spine. B12 level is normal. Sed rate, given her age, is normal. Although recurrent UTI and dehydration could be contributing I believe the main culprit is the spinal issue. Called and spoke with her POA, Elena (she is a niece). Discussed her test results & my impression. Elena reports that Ms. Fair has been wheelchair-dependent for about 6 months. She refuses to walk or do physical therapy. She had 2 epidural injections last fall with little in the way of pain relief. In light of all of the above she is a very, very poor surgical candidate. At this time our best plan may be to focus on her pain. Will increase her nucynta to 50mg TID (was on 50 BID previously). Consider changing to extended release version. Cont gabapentin. PT, OT. 2. acute kidney injury in setting of CKD stage 4 - hydrate, repeat BMP am. 3. recent UTI (during previous admission) with ongoing dirty u/a - continue levaquin, follow repeat urine culture. 4. HTN - in light of #2 hold her aldactone & ROSS. 5. hypothyroidism - TSH normal, continue synthroid. 6. h/o gastric ulcers - continue PPI. 7. DVT proph - heparin BID. 8. FEN - NS hydration, repeat BMP in am. 9. dementia with probable superimposed encephalopathy - latter mild, but could worsen tonight. seroquel 12.5mg po q8h prn agitation/delirium; avoid benzos. dispo - back to [facility], but needs SNF rather than assisted living Continued [facility] stay due to: inadequate oral pain control, ambulation difficulties, multiple IV medications needed Discharge planning: alf facility
[2016-10-10] VITALS: BP 139/74; PULSE 79; TEMP 36.7; O2SAT 94
[2016-10-10] MEDS: SODIUM CHLORIDE 0.9% 1000ML 1,000 ML IV SCH (02:56)
[2016-10-10] MEDS: LEVOTHYROXINE 75 MCG TAB PO SCH (06:19)
[2016-10-10 08:02] VITALS: BP 152/83; PULSE 72; TEMP 36.8; O2SAT 94
[2016-10-10] MEDS: PANTOprazole SOD 40 MG TAB PO SCH (08:11)
[2016-10-10] MEDS: TAPENTADOL HCL 50 MG TAB PO SCH ×3 (08:11→21:14)
[2016-10-10] MEDS: GABAPENTIN 300 MG CAP PO SCH ×3 (08:11→21:14)
[2016-10-10] MEDS: CALCIUM 600MG + VIT D 400 IU TAB PO SCH ×2 (08:11→21:15)
[2016-10-10 09:09] LABS: BUN/CREATININE RATIO 25.5 (10-20); CREATININE 1.4 mg/dl (0.60-1.20); POTASSIUM 4.2 mmol/L (3.5-5.1)
[2016-10-10 09:21] LABS: CALCIUM 9.4 mg/dl (8.5-10.1)
[2016-10-10] MEDS: HEPARIN SOD 5000 UNIT/0.5 ML CARP SQ SCH ×2 (10:16→21:19)
--- NOTE | 2016-10-10 13:13 | Medical Student: [facility] ---
Med Student Progress Note Date of Service October 10, 2016. Subjective Pt evaluation today including: conversation w/ patient, physical exam, chart review, lab review, review of studies Pain: moderate right leg pain PO Intake: full diet Voiding: incontinence Patient had some episodes of incontinence overnight. She continues to report bilateral leg pain, right greater than left. She has no other acute complaints. Review of Systems Notes: ROS not performed due to dementia Objective Vital Signs Date Time Temp Pulse Resp B/P Pulse Ox O2 Delivery O2 Flow Rate FiO2 10/10/16 08:02 36.8 72 18 152/83 94 Room Air 10/10/16 08:00 Room Air 10/10/16 00:00 Room Air 10/10/16 00:00 36.7 79 20 139/74 94 Room Air 10/09/16 16:00 Room Air 10/09/16 14:39 36.8 80 20 95/57 99 Room Air Physical Exam General Appearance: WD/WN, no apparent distress ENT: hearing grossly normal, pharynx normal Neck: supple, no JVD Respiratory/Chest: lungs clear, normal breath sounds, no respiratory distress Cardiovascular: regular rate, rhythm, no edema, no gallop, no murmur Abdomen: non tender, soft Extremities: non-tender, no pedal edema Neurologic/Psychiatric: alert, oriented x 3, + motor weakness (4+/5 motor strength in right foot. 5/5 on left) Skin: normal color, no rash Lymphatic: no adenopathy Laboratory Results Last 24 Hours Test 10/10/16 08:10 Sodium Level 141 mmol/L Potassium Level 4.2 mmol/L Chloride Level 106 mmol/L Carbon Dioxide Level 27 mmol/L Anion Gap 8.0 mmol/L Blood Urea Nitrogen 36 mg/dl Creatinine 1.40 mg/dl Est Creatinine Clear Calc Drug Dose 20.3 ml/min Estimated GFR () 39.1 Estimated GFR (Non- 33.7 BUN/Creatinine Ratio 25.5 Random Glucose 80 mg/dl Calcium Level 9.4 mg/dl Medications Current Inpatient Medications Medications (Trade) Dose Ordered Sig/Declan Route Start Time Stop Time Status Last Admin Dose Admin Acetaminophen (Tylenol Tab) 650 mg Q4H PRN PO 10/08/16 18:15 11/07/16 18:14 10/09/16 01:00 650 MG Al Hydrox/Mg Hydrox/Simethicone (Maalox Max Susp) 15 ml Q4H PRN PO 10/08/16 18:15 11/07/16 18:14 Magnesium Hydroxide (Milk Of Magnesia Susp) 30 ml Q6H PRN PO 10/08/16 18:15 11/07/16 18:14 Polyethylene (Miralax Powder Packet) 17 gm DAILY PRN PO 10/08/16 20:15 11/07/16 20:14 Ondansetron HCl (Zofran Inj) 4 mg Q6H PRN IV 10/08/16 18:15 11/07/16 18:14 Heparin Sodium (Porcine) (Heparin Sq 5000 Unit/0.5ml) 5,000 unit Q12H SQ 10/08/16 21:00 11/07/16 20:59 10/10/16 10:16 5,000 UNIT Gabapentin (Neurontin Cap) 300 mg TID PO 10/08/16 21:00 11/07/16 20:59 10/10/16 08:11 300 MG Levothyroxine Sodium (Synthroid Tab) 75 mcg DAILYBB PO 10/09/16 06:30 11/08/16 06:29 10/10/16 06:19 75 MCG Spironolactone (Aldactone Tab) 25 mg DAILY PO 10/09/16 08:00 11/08/16 08:59 Future Hold 10/09/16 07:44 25 MG Tapentadol (Nucynta Tab) 50 mg Q6 PRN PO 10/08/16 18:15 10/22/16 18:14 10/09/16 04:56 50 MG Calcium/Vitamin D (Caltrate Plus Tab) 1 tab BID PO 10/08/16 21:00 11/07/16 20:59 10/10/16 08:11 1 TAB Enalapril Maleate (Vasotec Tab) 40 mg QAM PO 10/09/16 08:00 11/08/16 07:59 Future Hold 10/09/16 07:44 40 MG Pantoprazole Sodium (Protonix Tab) 40 mg QAM PO 10/09/16 08:00 11/08/16 08:59 10/10/16 08:11 40 MG Miscellaneous (Iv Fluids Completed) 1 ea PRN PRN N/A 10/08/16 18:30 5/9/18 18:29 Levofloxacin 1 ea 1 ea UD PRN N/A 10/09/16 01:30 11/08/16 01:29 Levofloxacin/Prmx (Levaquin / D5W/ Premixed D5W) 100 ml @ 100 mls/hr Q48H IV 10/11/16 02:00 10/21/16 01:59 Quetiapine Fumarate (seroQUEL TAB) 12.5 mg Q8H PRN PO 10/09/16 18:00 11/08/16 17:59 10/09/16 18:31 12.5 MG Tapentadol (Nucynta Tab) 50 mg TID PO 10/09/16 22:00 10/23/16 21:59 10/10/16 08:11 50 MG Assessment and Plan Problems Acute kidney injury Degenerative disc disease Lumbar radiculopathy Unable to ambulate UTI (urinary tract infection) Hypertension Osteoporosis Spinal stenosis Assessment and Plan: This is an 86 yo female with a history of dementia and spinal stenosis who presented to the hospital following frequent falls and with altered mental status. 1. Frequent falls: -Likely secondary to spinal stenosis leading to sensory and motor deficits of lower extremities. -Currently living alone at [facility]. Christy recommends more supervised care. -Some element of confusion and dementia may also play a role in her falls. -For discharge planning, look to send to SNF when medically stable. -Not good surgical candidate, given mental status and other comorbidities. 2. Dementia: -Patient is disoriented while in the hospital. -Mental status may be worse due to possible UTI. -Consider one-to-one monitoring at night due to significant sundowning. -Patient removed two IVs last night -May give seroquel 12.5 mg po q8h prn for agitation. 3. UTI: -Patient has history of incontinence and UTIs at [facility] -Continue current treatment with levofloxacin for UTI coverage. 4. DVT prophylaxis: -Heparin 5000 u subq q8h for prevention of clot formation 5. Plan to discharge tomorrow to SNF at [facility] following abx sensitivities for UTI. Continued [facility] stay due to: ambulation difficulties, multiple IV medications needed Discharge planning: [facility] facility
[2016-10-10] MEDS ORDERED: LEVOFLOXACIN 750 MG TAB PO SCH (14:00)
[2016-10-10 15:23] VITALS: BP 113/69; PULSE 91; TEMP 36.8; O2SAT 92
[2016-10-10] MEDS: ACETAMINOPHEN 325 MG TAB PO PRN (17:33)
[2016-10-10] MEDS: QUETIAPINE FUMARATE 25 MG TAB PO PRN (18:09)
--- NOTE | 2016-10-10 18:32 | Progress Note ---
Subjective Date of Service: October 10, 2016. (Gee Rodriguez, BRO) Subjective Pt evaluation today including: physical exam, chart review, lab review, review of studies, review of inpatient medication list Pain: c/o bilateral thigh and back pain - no pain distal to knees PO Intake: according to nursing tolerated breakfast Voiding: no voiding problems seems to get confused at night. Has back pain with movement and bending of back. tolerable at rest (Gee Rodriguez CRNP) Problem List Medical Problems: (1) Acute kidney injury Status: Acute (2) Acute renal failure Status: Acute (3) Degenerative disc disease Status: Acute (4) Dehydration Status: Acute (5) Low back pain Status: Acute (6) Lumbar radiculopathy Status: Acute (7) Sinusitis Status: Acute (8) Spinal stenosis Status: Chronic (9) Unable to ambulate Status: Acute (10) Upper GI bleed Status: Acute (11) UTI (urinary tract infection) Status: Acute (12) Weakness Status: Acute (Gee Rodriguez, BRO) Review of Systems Constitutional: No chills, No fatigue, No fever, No problem reported, No see HPI, No sweats, No weakness, No weight loss Respiratory: No cough, No dyspnea at rest, No dyspnea on exertion, No hemoptysis, No problem reported, No see HPI, No shortness of breath, No sputum, No wheezing Cardiac: No PND, No chest pain, No claudication, No edema, No orthopnea, No palpitations, No problem reported, No see HPI Abdomen: No GI bleeding, No constipation, No diarrhea, No nausea, No pain, No problem reported, No see HPI, No vomiting Musculoskeletal: + joint pain (back - both thighs, more anterolateral) Female : No abnormal vaginal bleeding, No dysuria, No hematuria, No incontinence, No problem reported, No see HPI, No urinary frequency, No vaginal discharge Neurologic: + weakness (legs feel weak) Psychiatric: No anhedonism, No anxiety, No depression symptoms, No insomnia, No problem reported, No see HPI, No substance abuse Heme: No abnormal bleeding/bruising, No clotting problems, No night sweats, No problem reported, No see HPI, No swollen lymph nodes Skin: No bleeding, No color change, No itch, No new/changing skin lesions, No problem reported, No rash, No see HPI (Gee Rodriguez CRNP) Medications reviewed (Gee Rodriguez CRNP) Objective Vital Signs Date Time Temp Pulse Resp B/P Pulse Ox O2 Delivery O2 Flow Rate FiO2 10/10/16 15:23 36.8 91 16 113/69 92 Room Air 10/10/16 08:02 36.8 72 18 152/83 94 Room Air 10/10/16 08:00 Room Air 10/10/16 00:00 Room Air 10/10/16 00:00 36.7 79 20 139/74 94 Room Air (Gee Rodriguez CRNP) Physical Exam General Appearance: WD/WN Eyes: normal inspection Neck: supple Respiratory/Chest: chest non-tender, lungs clear, normal breath sounds Cardiovascular: regular rate, rhythm, no edema, no JVD, no murmur Abdomen: normal bowel sounds, non tender, soft Extremities: normal range of motion, non-tender, normal inspection, no pedal edema, no calf tenderness Neurologic/Psychiatric: alert, normal mood/affect, oriented x 3, + motor weakness (right dorsiflexion 4/5 weakness) Skin: normal color, warm/dry, no rash (Gee Rodriguez, BRO) Laboratory Results Last 24 Hours Test 10/10/16 08:10 Sodium Level 141 mmol/L Potassium Level 4.2 mmol/L Chloride Level 106 mmol/L Carbon Dioxide Level 27 mmol/L Anion Gap 8.0 mmol/L Blood Urea Nitrogen 36 mg/dl Creatinine 1.40 mg/dl Est Creatinine Clear Calc Drug Dose 20.3 ml/min Estimated GFR () 39.1 Estimated GFR (Non- 33.7 BUN/Creatinine Ratio 25.5 Random Glucose 80 mg/dl Calcium Level 9.4 mg/dl (Gee Rodriguez, BRO) Assessment and Plan This is an 86 yo female with a history of dementia and spinal stenosis who presented to the hospital following frequent falls and with altered mental status. 1. Frequent falls: -Likely secondary to spinal stenosis leading to sensory and motor deficits of lower extremities. -Currently living alone at [facility]. -Some element of confusion and dementia may also play a role in her falls. -Not good surgical candidate, given mental status and other comorbidities. 2. Dementia: -Patient is disoriented while in the hospital. -Mental status may be worse due to possible UTI. -Consider one-to-one monitoring at night due to significant sundowning. -Patient removed two IVs last night -May give seroquel 12.5 mg po q8h prn for agitation. 3. UTI: -Patient has history of incontinence and UTIs at [facility] -Continue current treatment with levofloxacin for UTI coverage - C&S are pending. 4. DVT prophylaxis: -Heparin 5000 u subq q8h for prevention of clot formation 5. Plan to discharge tomorrow to SNF at [facility] following abx sensitivities for UTI. Continued [facility] stay due to: ambulation difficulties, multiple IV medications needed Discharge planning: detention facility (Gee Rodriguez ., BRO) I agree with [employer] assessment and plan Labs and VS reviewed Admitted with frequent falls Poor prognosis Deconditioning Likely DC to SNF (Dylan Ruiz D.O.)
[2016-10-10 23:06] VITALS: BP 120/69; PULSE 91; TEMP 36.5; O2SAT 93
[2016-10-11] MEDS ORDERED: LEVOFLOXACIN 500MG / D5W IV SCH (02:00)
[2016-10-11] MEDS: LEVOTHYROXINE 75 MCG TAB PO SCH (05:59)
[2016-10-11 07:31] VITALS: BP 170/98; PULSE 78; TEMP 36.4; O2SAT 96
[2016-10-11] MEDS: TAPENTADOL HCL 50 MG TAB PO SCH ×4 (07:34→20:24)
[2016-10-11] MEDS: PANTOprazole SOD 40 MG TAB PO SCH (07:35)
[2016-10-11] MEDS: GABAPENTIN 300 MG CAP PO SCH ×4 (07:35→20:24)
[2016-10-11] MEDS: CALCIUM 600MG + VIT D 400 IU TAB PO SCH ×2 (07:36→20:23)
[2016-10-11 07:53] LABS: HEMATOCRIT 32.8 % (37-47); MEAN CELL VOLUME 94.5 fL (80-100); MEAN CORPUSCULAR HEMOGLOBIN 31.4 pg (25-34); MEAN CORPUSCULAR HGB CONC 33.2 g/dl (32-36); MEAN PLATELET VOLUME 8.7 fL (7.4-10.4); PLATELET COUNT 345 K/uL (130-400); RED BLOOD COUNT 3.47 M/uL (4.2-5.4); WHITE BLOOD COUNT 10.26 K/uL (4.8-10.8)
[2016-10-11] MEDS: HEPARIN SOD 5000 UNIT/0.5 ML CARP SQ SCH ×2 (08:47→20:29)
[2016-10-11 09:01] LABS: BUN/CREATININE RATIO 28.5 (10-20); CALCIUM 9.5 mg/dl (8.5-10.1); CREATININE 1.3 mg/dl (0.60-1.20); MAGNESIUM 1.8 mg/dl (1.8-2.4); POTASSIUM 4.4 mmol/L (3.5-5.1)
[2016-10-11] MEDS ORDERED: LEVOFLOXACIN 750 MG TAB PO SCH (11:00)
--- NOTE | 2016-10-11 13:22 | Medical Student: [facility] ---
Med Student Progress Note Date of Service October 11, 2016. Subjective Pt evaluation today including: conversation w/ patient, physical exam, chart review, lab review, review of studies Pain: moderate right leg pain PO Intake: normal diet Voiding: incontinence patient reports feeling tired and that her mouth is dry. No acute events overnight. she does report some urinary incontinence which is why she has not been drinking much water. otherwise has no other symptoms to report. Review of Systems Constitutional: No chills, No fever, No sweats Respiratory: No cough, No shortness of breath, No sputum, No wheezing Cardiac: No chest pain Abdomen: No nausea, No pain Female : + incontinence Notes: full ROS not performed due to dementia Objective Vital Signs Date Time Temp Pulse Resp B/P Pulse Ox O2 Delivery O2 Flow Rate FiO2 10/11/16 08:00 Room Air 10/11/16 07:31 36.4 78 16 170/98 96 Room Air 10/11/16 00:00 Room Air 10/10/16 23:06 36.5 91 16 120/69 93 Room Air 10/10/16 16:00 Room Air 10/10/16 15:23 36.8 91 16 113/69 92 Room Air Physical Exam General Appearance: WD/WN, no apparent distress ENT: hearing grossly normal, pharynx normal, + pertinent finding (mucus membranes somewhat dry) Neck: supple, no JVD Respiratory/Chest: chest non-tender, lungs clear, normal breath sounds Cardiovascular: regular rate, rhythm, no edema, no gallop, no murmur Abdomen: normal bowel sounds, non tender, soft Extremities: + pertinent finding (pain with leg movement. some tenderness to palpation on anterolateral portion of right thigh.) Neurologic/Psychiatric: + disoriented (oriented to self only) Skin: normal color Laboratory Results Last 24 Hours Test 10/11/16 07:34 White Blood Count 10.26 K/uL Red Blood Count 3.47 M/uL Hemoglobin 10.9 g/dL Hematocrit 32.8 % Mean Corpuscular Volume 94.5 fL Mean Corpuscular Hemoglobin 31.4 pg Mean Corpuscular Hemoglobin Concent 33.2 g/dl RDW Standard Deviation 46.0 fL RDW Coefficient of Variation 13.4 % Platelet Count 345 K/uL Mean Platelet Volume 8.7 fL Sodium Level 142 mmol/L Potassium Level 4.4 mmol/L Chloride Level 107 mmol/L Carbon Dioxide Level 28 mmol/L Anion Gap 7.0 mmol/L Blood Urea Nitrogen 37 mg/dl Creatinine 1.30 mg/dl Est Creatinine Clear Calc Drug Dose 21.9 ml/min Estimated GFR () 42.7 Estimated GFR (Non- 36.9 BUN/Creatinine Ratio 28.5 Random Glucose 88 mg/dl Calcium Level 9.5 mg/dl Magnesium Level 1.8 mg/dl Medications Current Inpatient Medications Medications (Trade) Dose Ordered Sig/Declan Route Start Time Stop Time Status Last Admin Dose Admin Acetaminophen (Tylenol Tab) 650 mg Q4H PRN PO 10/08/16 18:15 11/07/16 18:14 10/10/16 17:33 650 MG Al Hydrox/Mg Hydrox/Simethicone (Maalox Max Susp) 15 ml Q4H PRN PO 10/08/16 18:15 11/07/16 18:14 Magnesium Hydroxide (Milk Of Magnesia Susp) 30 ml Q6H PRN PO 10/08/16 18:15 11/07/16 18:14 Polyethylene (Miralax Powder Packet) 17 gm DAILY PRN PO 10/08/16 20:15 11/07/16 20:14 Ondansetron HCl (Zofran Inj) 4 mg Q6H PRN IV 10/08/16 18:15 11/07/16 18:14 Heparin Sodium (Porcine) (Heparin Sq 5000 Unit/0.5ml) 5,000 unit Q12H SQ 10/08/16 21:00 11/07/16 20:59 10/11/16 08:47 5,000 UNIT Levothyroxine Sodium (Synthroid Tab) 75 mcg DAILYBB PO 10/09/16 06:30 11/08/16 06:29 10/11/16 05:59 75 MCG Spironolactone (Aldactone Tab) 25 mg DAILY PO 10/09/16 08:00 11/08/16 08:59 Future Hold 10/09/16 07:44 25 MG Tapentadol (Nucynta Tab) 50 mg Q6 PRN PO 10/08/16 18:15 10/22/16 18:14 10/09/16 04:56 50 MG Calcium/Vitamin D (Caltrate Plus Tab) 1 tab BID PO 10/08/16 21:00 11/07/16 20:59 10/11/16 07:36 1 TAB Enalapril Maleate (Vasotec Tab) 40 mg QAM PO 10/09/16 08:00 11/08/16 07:59 Future Hold 10/09/16 07:44 40 MG Pantoprazole Sodium (Protonix Tab) 40 mg QAM PO 10/09/16 08:00 11/08/16 08:59 10/11/16 07:35 40 MG Miscellaneous (Iv Fluids Completed) 1 ea PRN PRN N/A 10/08/16 18:30 10/08/17 18:29 Levofloxacin (Consult) 1 ea UD PRN N/A 10/09/16 01:30 11/08/16 01:29 Quetiapine Fumarate (seroQUEL TAB) 12.5 mg Q8H PRN PO 10/09/16 18:00 11/08/16 17:59 10/10/16 18:09 12.5 MG Tapentadol (Nucynta Tab) 50 mg TID PO 10/09/16 22:00 10/23/16 21:59 10/11/16 07:34 50 MG Levofloxacin (Levaquin Tab) 750 mg Q2D@1100 PO 10/11/16 11:00 10/21/16 10:59 10/11/16 10:41 750 MG Gabapentin (Neurontin Cap) 300 mg QID PO 10/11/16 12:00 11/10/16 11:59 10/11/16 12:05 300 MG Assessment and Plan Assessment and Plan: This is an 86 yo female with a history of dementia and spinal stenosis who presented to the hospital following frequent falls and with altered mental status. 1. Frequent falls: -Likely secondary to spinal stenosis leading to sensory and motor deficits of lower extremities. -Increased gabapentin for pain from 300 mg po tid to four times daily. -Currently living alone at [facility]. Niece recommends more supervised care. -Some element of confusion and dementia may also play a role in her falls. -For discharge planning, look to send to SNF when medically stable. -Not good surgical candidate, given mental status and other comorbidities. 2. Dementia: -Patient is disoriented while in the hospital. -Mental status may be worse due to possible UTI. -May give seroquel 12.5 mg po q8h prn for agitation. 3. UTI: -Patient has history of incontinence and UTIs at [facility] -Continue current treatment with levofloxacin for UTI coverage. 4. DVT prophylaxis: -Heparin 5000 u subq q8h for prevention of clot formation 5. Discharge uncertain due to case management issues. [facility] vs [facility]hab. Continued [facility] stay due to: ambulation difficulties, multiple IV medications needed [facility]charge planning[facility], uncertain
[2016-10-11] MEDS ORDERED: NRN300 PO (15:20)
[2016-10-11] MEDS ORDERED: LVQ750 PO (15:20)
--- NOTE | 2016-10-11 15:26 | Discharge Instructions ---
Discharge Instructions Date of Service October 11, 2016. Admission Reason for Admission: Ambulatory Dysfunction Discharge Discharge Diagnosis / Problem: spinal stenosis, lumbar radiculopathy, ambulatory dysfunction Discharge Goals Goal(s): Decrease discomfort, Improve function, Increase independence, Improve disease control Activity Recommendations Activity Limitations: as noted below Lifting Limitations: gradually increase as tolerated Exercise/Sports Limitations: as tolerated . Instructions / Follow-Up Instructions / Follow-Up Frequent falls likely secondary to spinal stenosis leading to sensory and motor deficits of lower extremities and lumbar radiculopathy - continued Nucynta. Increased gabapentin. Will need ongoing PT/OT. Not safe to be home alone. Recommend SNF level care and she will be transferred later today. Not a good surgical candidate, given mental status and other comorbidities. UTI - will need two more doses of Levaquin every other day dosing. Current Hospital Diet Patient's current hospital diet: Regular Diet Discharge Diet Recommended Diet: AHA Diet (Heart Healthy) Pending Studies Studies pending at discharge: no Medical Emergencies . Who to Call and When: Medical Emergencies: If at any time you feel your situation is an emergency, please call 911 immediately. . Non-Emergent Contact Non-Emergency issues call your: Primary Care Provider (will be followed at [facility]) . Past History Medical & Surgical History: (1) Ambulatory dysfunction (2) Low back pain (3) Weakness (4) Spinal stenosis (5) Lumbar degenerative disc disease . "Provider Documentation" section prepared by Gee Rodriguez. . VTE Core Measure Inpt VTE Proph given/why not?: Unfractionated heparin SQ, T.E.D. Stockings, SCD 's
[2016-10-11 16:00] VITALS: O2SAT 92
[2016-10-11 16:22] VITALS: BP 125/63; PULSE 76; TEMP 36.6; O2SAT 92
--- NOTE | 2016-10-11 22:41 | Hospitalist Progress Note ---
Hospitalist Progress Note Date of Service October 11, 2016. Subjective Pt evaluation today including: conversation w/ patient, physical exam, chart review, lab review Pain: c/o right leg pain PO Intake: tolerating pain Voiding: incontinence c/o right leg pain, no other complaints Constitutional: + fatigue Additional Comments: attempted to do a review of systems, but limited to mental status. only complaint was back/lag pain Medications reviewed Objective Vital Signs Date Time Temp Pulse Resp B/P Pulse Ox O2 Delivery O2 Flow Rate FiO2 10/11/16 08:00 Room Air 10/11/16 07:31 36.4 78 16 170/98 96 Room Air 10/11/16 00:00 Room Air 10/10/16 23:06 36.5 91 16 120/69 93 Room Air 10/10/16 16:00 Room Air 10/10/16 15:23 36.8 91 16 113/69 92 Room Air Physical Exam General Appearance: no apparent distress Eyes: sclerae normal ENT: pharynx normal Neck: supple, no JVD Respiratory/Chest: chest non-tender, lungs clear, normal breath sounds Cardiovascular: regular rate, rhythm, no edema, no JVD Abdomen: normal bowel sounds, non tender, soft Extremities: non-tender, no pedal edema Neurologic/Psychiatric: alert, + motor weakness (4/5 dorsiflexion weakness on right), + disoriented (oriented to person and place) Skin: normal color, warm/dry, no rash Laboratory Results Last 24 Hours Test 10/11/16 07:34 White Blood Count 10.26 K/uL Red Blood Count 3.47 M/uL Hemoglobin 10.9 g/dL Hematocrit 32.8 % Mean Corpuscular Volume 94.5 fL Mean Corpuscular Hemoglobin 31.4 pg Mean Corpuscular Hemoglobin Concent 33.2 g/dl RDW Standard Deviation 46.0 fL RDW Coefficient of Variation 13.4 % Platelet Count 345 K/uL Mean Platelet Volume 8.7 fL Sodium Level 142 mmol/L Potassium Level 4.4 mmol/L Chloride Level 107 mmol/L Carbon Dioxide Level 28 mmol/L Anion Gap 7.0 mmol/L Blood Urea Nitrogen 37 mg/dl Creatinine 1.30 mg/dl Est Creatinine Clear Calc Drug Dose 21.9 ml/min Estimated GFR () 42.7 Estimated GFR (Non- 36.9 BUN/Creatinine Ratio 28.5 Random Glucose 88 mg/dl Calcium Level 9.5 mg/dl Magnesium Level 1.8 mg/dl Assessment and Plan This is an 86 yo female with a history of dementia and spinal stenosis who presented to the hospital following frequent falls and with altered mental status. 1. Frequent falls: -Likely secondary to spinal stenosis leading to sensory and motor deficits of lower extremities. -Currently living alone at [facility]. -Some element of confusion and dementia may also play a role in her falls. -Not good surgical candidate, given mental status and other comorbidities. 2. Delerium on Dementia: -likely secondary to UTI. Appears to be back to baseline dementia 3. UTI: -Patient has history of incontinence and UTIs at [facility] -Continue current treatment with levofloxacin for UTI coverage - culture showed Lactobacillus. Sensitivity Pending 4. DVT prophylaxis: -Heparin 5000 u subq q8h for prevention of clot formation 5. Plan was to discharge to SNF at [facility] today, however authorization from the insurance company required a peer to peer review and the physician from [facility] did not call back until almost 4PM. At that point transportation to SNF could not be obtained and patient will be discharged tomorrow morning.
[2016-10-11 23:47] VITALS: BP 154/82; PULSE 72; TEMP 36.6; O2SAT 94
[2016-10-12 00:07] VITALS: O2SAT 92
[2016-10-12] MEDS: LEVOTHYROXINE 75 MCG TAB PO SCH (04:56)
[2016-10-12] MEDS: TAPENTADOL HCL 50 MG TAB PO PRN (04:57)
[2016-10-12 07:11] VITALS: BP 132/76; PULSE 94; TEMP 36.8; O2SAT 94
[2016-10-12 07:31] VITALS: BP 132/76; PULSE 94; TEMP 36.8; O2SAT 94
[2016-10-12] MEDS: TAPENTADOL HCL 50 MG TAB PO SCH (09:28)
[2016-10-12] MEDS: CALCIUM 600MG + VIT D 400 IU TAB PO SCH (09:29)
[2016-10-12] MEDS: PANTOprazole SOD 40 MG TAB PO SCH (09:29)
[2016-10-12] MEDS: GABAPENTIN 300 MG CAP PO SCH (09:29)
[2016-10-12] MEDS ORDERED: TAPE50TA5 PO (09:52)
[2016-10-12] MEDS ORDERED: MRLP17X PO (09:52)
[2016-10-12] MEDS ORDERED: SRQ25 PO (09:52)
[2016-10-12] MEDS ORDERED: NIFE30TA2 PO (09:54)
[2016-10-12] MEDS ORDERED: NYSS5 PO (09:54)
[2016-10-12] MEDS ORDERED: AMX500 PO (09:54)
[2016-10-12] MEDS ORDERED: NCY50 PO (09:54)
--- NOTE | 2016-10-12 10:00 | Discharge Instructions ---
Discharge Instructions Date of Service October 12, 2016. Admission Reason for Admission: Ambulatory Dysfunction Discharge Discharge Diagnosis / Problem: frequent falls likely due to severe lumbar spinal stenosis Discharge Goals Goal(s): Learn about illness, Diagnostic testing, Therapeutic intervention Activity Recommendations Activity Level: Assistance Required Therapies: Physical Therapy, Occupational Therapy . Additional Information Patient informed of condition: Yes Advance Directives: Yes DNR: No Level of Care: Skilled Communicable Disease: No Prognosis: Stable Oxygen at (LPM): none Buck Catheter: No Instructions / Follow-Up Instructions / Follow-Up Recommend return visit to Dr. Ethan Adames or Dr. Natalia Scott - Pain Management - in 1-2 weeks for severe lumbar spinal stenosis. See Supervisor [facility] of SNF within 48 hours. Current Hospital Diet Patient's current hospital diet: Regular Diet Discharge Diet Recommended Diet: Regular Diet Procedures Procedures Performed: CAT scan of head, neck and lumbar spine. CAT scan of neck showing severe DJD. CAT scan of lumbar spine with severe spinal stenosis. Pending Studies Studies pending at discharge: no Physician Orders On Transfer Special Precautions: aspiration precautions - head of bed at 30 degrees or more at all times, assistance with meals, small bites, etc. Additional Orders: BMP (basic metabolic panel) in 3-4 days for stability of creatinine/electrolytes ; forward results to biomedical equipment support specialist BENJAMIN Discussion: Not Applicable Medical Emergencies . Who to Call and When: Medical Emergencies: If at any time you feel your situation is an emergency, please call 911 immediately. . Non-Emergent Contact Non-Emergency issues call your: Specialist ([facility]) Call Non-Emergent contact if: temperature is above 100.5, your pain is not controlled, your pain is worsening, your pain is unusual for you, your pain is concerning you, you have any medication questions . . "Provider Documentation" section prepared by Alec Ayoub. . Core Measure Problem Core Measures: None
--- NOTE | 2016-10-12 10:16 | Discharge Summary ---
Discharge Summary Date of Service October 12, 2016. Discharge Summary Admission Date: October 08, 2016 at 18:20 Discharge Date: October 12, 2016 Discharge Disposition: [facility] facility ([facility]) Principal Diagnosis: falls, likely 2nd to severe lumbar spinal stenosis Problems/Secondary Diagnoses: 1. acute kidney injury - resolved 2. CKD stage 3 - baseline Cr 1.2-1.3 3. lactobacillus UTI 4. dementia with superimposed metabolic encephalopathy - latter resolved 5. h/o GERD 6. h/o gastric ulcers with resultant GI bleeding 7. severe DJD of the cervical spine 8. HTN 9. hypothyroidism 10. osteoporosis 11. anemia Procedures: 1. lumbar spine CT - FINDINGS: L1-2 level: There are extensive endplate erosive changes. There is a circumferential disc bulge. There is moderate spinal stenosis. L2-3 level: There is marked disc desiccation. There is a circumferential disc bulge. There is mild spinal stenosis. There is no significant foraminal narrowing L3-4 level: There is a circumferential disc bulge. There is marked disc degeneration. There is moderate to severe spinal stenosis. There is a posterior osteophyte arising from the left posterior aspect of the L4 vertebral body resulting in thecal sac deformity.. L4-5 level: There is a circumferential disc bulge. There is marked disc degeneration and endplate irregularity. There is severe spinal stenosis. L5-S1 level: There is a circumferential disc bulge. There is a disc osteophyte complex. There is moderate spinal stenosis. No acute fractures or traumatic subluxations are visualized. IMPRESSION: 1. No acute fractures or traumatic subluxations are visualized 2. Advanced multilevel spondylitic changes with multilevel disc space narrowing, endplate sclerosis, and endplate erosive change. 3. Multilevel spinal stenosis 2. Cervical spine CT - FINDINGS: The visualized portions of the lung apices reveal no evidence of pneumothorax. The prevertebral soft tissues are normal. No fractures or traumatic subluxations are visualized. There are advanced multilevel degenerative changes. There is marked disc space narrowing and endplate erosive change see 4-5, 5-6, and C6-7 levels. There is 2.7 mm of anterior subluxation of C3 on C4, unchanged the prior study. There is 2.3 mm of retrolisthesis of C4 on C5, unchanged the prior study. There is 2.3 mm of anterior subluxation of C7 on T1, unchanged the prior study. There is bony fragmentation at the C4-C7 levels, likely degenerative. There is an old C4 transverse process fracture. IMPRESSION: 1. No acute fractures or traumatic subluxations 2. Advanced multilevel degenerative change, similar to the prior study dated 09/27/[address] head neg for ICH or stroke Consultations: PT, OT Medication Reconciliation New Medications: Amoxicillin (Amoxicillin) 500 Mg Cap 500 MG PO BID for 3 Days, #6 0 Refills Nifedipine (Procardia Xl Ext Rel) 30 Mg Tab 1 TAB PO DAILY for 30 Days, #30 TAB 5 Refills start 10/12/16 Nystatin (Nystatin) 5 Ml Susp 5 ML PO QD for 10 Days, #200 ML 1 Refill swish and swallow Polyethylene (Miralax) 17 Gm Pow 17 GM PO DAILY, #30 PKT 2 Refills Quetiapine Fumarate (Quetiapine Fumarate) 25 Mg Tab 12.5 MG PO Q8H PRN for agitation/delirium, #30 TAB 0 Refills Changed Medications: Tapentadol Hcl (Nucynta) 50 Mg Tab 50 MG PO TID, #90 TAB 0 Refills (Changed from: BID; Refills: ) Tapentadol HCl (Nucynta) 50 Mg Tab 50 MG PO Q8H PRN for Pain, #30 TAB 0 Refills (Changed from: Q6; 120) Continued Medications: Acetaminophen (Tylenol) 500 Mg Tab 1000 MG PO Q8H PRN for Fever, TAB TAKE 1000MG EVERY 8 HOURS NEEDED FOR FEVER OF OVER 100.1 F. Calcium Carbonate-Vitamin D (Calcium + D3 600-200 mg-Unit) 1 Tab Tab 1 TAB PO BID Esomeprazole Magnesium (Esomeprazole Magnesium) 40 Mg Cap 40 MG PO DAILY Gabapentin (Neurontin) 300 Mg Cap 300 MG PO TID, CAP Levothyroxine Sodium (Levothyroxine Sodium) 75 Mcg Tab 1 TAB PO DAILY for 90 Days, #90 TAB 3 Refills Discontinued Medications: Quinapril Hcl (Accupril) 40 Mg Tab 40 MG PO DAILY, TAB Spironolactone (Aldactone) 25 Mg Tab 25 MG PO DAILY, TAB Referrals At Discharge Follow up Referrals: Physician Referral - Please Call For Appointment with Upendra. Adames M.D. Discharge Exam Physical Exam: General Appearance: no apparent distress ENT: + pertinent finding (copious thrush on tongue and slightly on buccal mucosa) Neck: no JVD Respiratory/Chest: no respiratory distress, no accessory muscle use, + rales (right base, dry) Cardiovascular: regular rate, rhythm, no gallop, no JVD, no murmur, normal peripheral pulses Abdomen / GI: normal bowel sounds, non tender, soft, no organomegaly Extremities: no pedal edema Neurologic/Psychiatric: alert, + disoriented, + pertinent finding (slightly foot drop on right, modest weakness right leg with flexion/extension of ankle/ foot; strength on left is normal, 5/5; b/l arm strength 5/5 ) Skin: no rash Hospital Course HISTORY OF PRESENT ILLNESS: The patient is an 86-year-old white female with a significant past medical history of anemia, GI bleeding, hypertension, hypothyroidism, lumbar degenerative disc disease, osteoporosis, rhabdo, spinal stenosis, and dementia who presented with multiple falls in the 24 hours prior to admission. She is currently a resident of the assisted living portion of [facility]. She fell 2 times in the past 24 hours and was unable to ambulate. The patient has pain in her lumbar spine which is causing her pain. Her right leg is more painful than left leg. HOSPITAL COURSE: 1. frequent falls - exact etiology uncertain but I suspect it is due to her severe lumbar spinal stenosis. C-spine DJD could be contributing but she does not appear to have upper extremity weakness and thus much less likely. Vitamin B12 level was normal. TSH level was compensated. Dehydration with acute kidney injury could have contributed to weakness leading to a fall as well. Previous records from orthopedics in the fall 2016 highlight the severity of her lumbar spine. During that consultation Dr. Tay Merlos, spine surgeon, saw the patient in consult and felt she was a poor candidate for lumbar spine surgery. Conservative medical management of her back was advised. She has received injections into the back in the past by pain management. During this admission the following were recommended - 1. increase nucynta IR to 50mg TID (from BID dosing) scheduled 2. continued use of gabapentin 300mg TID 3. continue use of nucynta IR q8h PRN 4. follow-up with pain management as an outpatient 5. ongoing PT, OT - as desired and/or tolerated (niece, her POA, reports 6+ months of near wheelchair-dependence and refusal to participate in therapies) As an outpatient could consider changing the nucynta IR formulation to extended release for improved pain control, if needed. 2. acute kidney injury in setting of CKD stage 4 - Cr at admission was 1.9, improving to 1.3 at discharge. ROSS and aldactone were discontinued due to propensity for dehydration and acute kidney injuries. 3. lactobacillus UTI - will complete 3 more days of amoxicillin after discharge. 4. HTN - in light of #2 her aldactone & ROSS were stopped; in glendy she will take nifedipine 30mg (xl) once daily. 5. hypothyroidism - TSH normal, continue synthroid at current dose. 6. h/o gastric ulcers - continue PPI. 7. thrush - nystatin solution QID x 10 days. 8. dementia with probable superimposed encephalopathy - latter mild and improved during her stay. Can use seroquel 12.5mg po q8h prn agitation/delirium at [facility]. Would avoid benzodiazepines. 9. mild right lower lobe rales - suspect due to right hemidiaphragm elevation + /- atelectasis. She had no signs/symptoms of right-sided pneumonia while here. Total Time Spent: Greater than 30 minutes This includes examination of the patient, discharge planning, medication reconciliation, and communication with other providers. Discharge Instructions Please refer to the electronic Patient Visit Report (Discharge Instructions) for additional information. Follow-Up 1. see medical editor of SNF within 48 hours 2. see pain management - Dr. Adames or Dr. Scott - in 1-2 weeks for severe L- spine stenosis Additional Copies To Federico Ga; Inocencia Monterroso DO
[2016-11-18] MEDS ORDERED: HYDR4TAB78 PO (14:11)
[2016-11-18] MEDS ORDERED: GABA1CAP5 PO (14:11)
[2016-12-18] MEDS ORDERED: GABA-112 PO (13:16)
== END 2016-10-12 10:20 ==
LOC: ENRESERVTM → ENRESERVDT → C.EDB 14:40 → C.MS4W 18:20
PROVIDERS: ADMIT Hospitalist; ATTEND Internal Medicine
DX: R29.6 Repeated falls (principal); M48.06 Spinal stenosis, lumbar region; M50.30 Other cervical disc degeneration, unspecified cervical region; N18.3 Chronic kidney disease, stage 3 (moderate); N39.0 Urinary tract infection, site not specified; F03.90 Unspecified dementia, unspecified severity, without behavioral disturbance, psychotic disturbance, mood disturbance, and anxiety; I10 Essential (primary) hypertension; E03.9 Hypothyroidism, unspecified; M81.0 Age-related osteoporosis without current pathological fracture; M62.82 Rhabdomyolysis; D64.9 Anemia, unspecified; E86.0 Dehydration; Z79.899 Other long term (current) drug therapy; Z82.49 Family history of ischemic heart disease and other diseases of the circulatory system